=== PATIENT | female | born 1940 | race Caucasian/White ===

== ENCOUNTER 2018-03-10 15:40 | Emergency (ER) | payer MEDICARE, BC ==
[~2018-03-10] VITALS: Ht 170.2 cm; Wt 57.6 kg
--- NOTE | 2018-03-10 15:40 | NUR ---
Received patient - AOX4, VELÁZQUEZ, respiration:easy, ETOH breath noted, pt denies drinking alcohol prior to arrival to ER, c/o left arm and left rib pains, skin warm and dry, denies nausea or chest pains
[2018-03-10] MEDS ORDERED: CHOL100034 PO (15:59)
[2018-03-10] MEDS ORDERED: [UNRECOGNIZED DRUG - OTHER] PO (15:59)
[2018-03-10] MEDS ORDERED: THIA100T13 PO (15:59)
[2018-03-10] MEDS ORDERED: COD1CAPS6 PO (15:59)
[2018-03-10] MEDS ORDERED: ALPHA LIPOIC ACID PO (15:59)
[2018-03-10] MEDS ORDERED: PYRI100T6 PO (15:59)
[2018-03-10] MEDS ORDERED: FOLI1TAB16 PO (15:59)
[2018-03-10] MEDS ORDERED: MAGNESIUM PO (15:59)
[2018-03-10] MEDS ORDERED: SPIR25TA6 PO (15:59)
[2018-03-10] MEDS ORDERED: HIGH POTENCY IRON PO (15:59)
[2018-03-10] MEDS ORDERED: FURO20TA4 PO (15:59)
[2018-03-10 16:16] LABS: BASOPHILS % (AUTO) 0.4 % (0.0-2.0); EOSINOPHILS # (AUTO) 0.1 K/uL (0.0-0.7); EOSINOPHILS % (AUTO) 1.4 % (0.0-7.0); HEMATOCRIT 40.3 % (31.2-41.9); HEMOGLOBIN 14.1 g/dL (10.9-14.3); LYMPHOCYTES # (AUTO) 0.5 K/uL (20.0-40.0); LYMPHOCYTES % (AUTO) 12.8 % (20.5-51.5); MEAN CORPUSCULAR HEMOGLOBIN 35.3 uug (24.7-32.8); MEAN CORPUSCULAR HGB CONC 35 g/dL (32.3-35.6); MEAN CORPUSCULAR VOLUME 101.2 fL (75.5-95.3); MONOCYTES # (AUTO) 0.5 K/uL (2.0-10.0); NEUTROPHILS # (AUTO) 3.1 K/uL (1.8-8.9); NEUTROPHILS % (AUTO) 74.4 % (38.5-71.5); PLATELET COUNT (AUTO) 59 K/uL (179-408); RED BLOOD CELL COUNT(AUTO) 3.98 MIL/uL (3.63-4.92); WHITE BLOOD COUNT (AUTO) 4.2 K/uL (3.8-11.8)
[2018-03-10 16:20] LABS: CARBON DIOXIDE 25 mmol/L (21-32); CHLORIDE 99 mmol/L (98-107); CREATININE 0.8 mg/dL (0.6-1.3); GLUCOSE 104 mg/dL (74-106); POTASSIUM 3.6 mmol/L (3.5-5.1); UREA NITROGEN, BLOOD 14 mg/dL (7-18)
[2018-03-10 16:26] LABS: ALANINE AMINOTRANSFERASE 37 U/L (14-59); ALKALINE PHOSPHATASE 146 U/L (50-136); ASPARTATE AMINOTRANSFERASE 83 U/L (15-37); BILIRUBIN,DIRECT 2.1 mg/dL (0.0-0.2); BILIRUBIN,TOTAL 3.8 mg/dL (0.2-1.0)
--- NOTE | 2018-03-10 16:34 | NUR ---
Patient is back from radiology dept in smae condition, pending results and disposition. Addendum: 03/10/18 at 1720 by DESHAUN Patient came from radiology dept in same condition, pending results and disposition
[2018-03-10 16:44] LABS: BAND % (MANUAL) 3 % (0-10); LYMPHOCYTES % (MANUAL) 12 % (20-40); MONOCYTES % (MANUAL) 9 % (2-10); NEUTROPHILS % (MANUAL) 76 % (42-75)
--- NOTE | 2018-03-10 17:19 | NUR ---
Patient is resting comfortably in bed with eyes closed, for soberiety@this time
--- NOTE | 2018-03-10 17:55 | NUR ---
Patient ambulated to bathroom with slow steady unassisted gait. Dinner tray ordered. Dietary notified. Patient said that she can go home via MD zulema aware.
[2018-03-10] MEDS ORDERED: ACETAMINOPHEN 325 MG TABLET PO ONE (18:00)
[2018-03-10] MEDS ORDERED: ACETAMINOPHEN 325 MG TABLET ONE (18:02)
--- NOTE | 2018-03-10 18:40 | NUR ---
Patient is eating dinner tray with good appetite.
--- NOTE | 2018-03-10 19:00 | NUR ---
Patient discharged to home in stable conditon and slow steady gait. Written and verbal after care instructions given to patient. Patient verbalizes understanding of instructions. Taxi was called for the patient per patient's request.
== END 2018-03-10 19:01 | disposition home or self-care (01) ==
LOC: ER 15:43
DX: S51.012A Laceration without foreign body of left elbow, initial encounter (principal); S20.212A Contusion of left front wall of thorax, initial encounter; S16.1XXA Strain of muscle, fascia and tendon at neck level, initial encounter; S09.90XA Unspecified injury of head, initial encounter; F10.129 Alcohol abuse with intoxication, unspecified; W01.198A Fall on same level from slipping, tripping and stumbling with subsequent striking against other object, initial encounter; Y93.89 Activity, other specified; Y92.89 Other specified places as the place of occurrence of the external cause; Y99.8 Other external cause status
CPT/HCPCS: 36415; 70450; 71250; 72125; 73060; 80048; 80076; 85025; 85730; 93005; 99285; A4663; G0480

== ENCOUNTER 2020-10-11 15:07 | Inpatient (IN) | payer MEDICARE, BC ==
[~2020-10-11] VITALS: Ht 170.2 cm; Wt 61.3 kg
[~2020-10-11 15:07] MED LIST: ALPHA LIPOIC ACID PO; CHOL100034 PO; COD1CAPS15 PO; FOLI1TAB94 PO; FURO20TA4 PO; HIGH POTENCY IRON PO; MAGNESIUM PO; PYRI100T6 PO; SPIR25TA6 PO; THIA100T13 PO; [UNRECOGNIZED DRUG - OTHER] PO
[2020-10-11] MEDS ORDERED: ONDANSETRON 4 MG/2 ML VIAL IV ONE (16:15)
[2020-10-11] MEDS ORDERED: IV NORMAL SALINE 1000 ML BAG IV ONE (16:15)
[2020-10-11] MEDS ORDERED: MORPHINE SULFATE 2 MG/1 ML DISP.SYRIN IV ONE (16:15)
[2020-10-11] MEDS ORDERED: ONDANSETRON 4 MG/2 ML VIAL ONE (16:27)
[2020-10-11] MEDS ORDERED: MORPHINE SULFATE 4 MG/1 ML DISP.SYRIN ONE (16:27)
[2020-10-11 16:59] LABS: BASOPHILS % (AUTO) 0.4 % (0.0-2.0); EOSINOPHILS % (AUTO) 0.5 % (0.0-7.0); HEMATOCRIT 36.8 % (31.2-41.9); HEMOGLOBIN 12.4 g/dL (10.9-14.3); LYMPHOCYTES # (AUTO) 0.3 K/uL (20.0-40.0); MEAN CORPUSCULAR HGB CONC 34 g/dL (32.3-35.6); MEAN CORPUSCULAR VOLUME 100.4 fL (75.5-95.3); MONOCYTES # (AUTO) 0.4 K/uL (2.0-10.0); MONOCYTES % (AUTO) 10.7 % (0.0-11.0); NEUTROPHILS # (AUTO) 2.9 K/uL (1.8-8.9); NEUTROPHILS % (AUTO) 79.4 % (38.5-71.5); RED BLOOD CELL COUNT(AUTO) 3.66 MIL/uL (3.63-4.92); WHITE BLOOD COUNT (AUTO) 3.7 K/uL (3.8-11.8)
[2020-10-11] MEDS ORDERED: PRED1TAB PO (17:00)
--- NOTE | 2020-10-11 17:00 | NUR ---
Dr Recinos spoke to Dr Patiño for admit.
--- NOTE | 2020-10-11 17:00 | NUR ---
Pt is unable to recall all of her home medications at this time. Pt states she has a list at home and she will try to get someone to bring it in. Current list updated accordingly with information provided.
[2020-10-11 17:07] LABS: CREATININE 0.8 mg/dL (0.6-1.3); POTASSIUM 3.6 mmol/L (3.5-5.1)
[2020-10-11 17:17] LABS: PLATELET COUNT (AUTO) 42 K/uL (179-408)
[2020-10-11 17:23] LABS: BILIRUBIN,DIRECT 0.6 mg/dL (0.0-0.2); BILIRUBIN,TOTAL 1.9 mg/dL (0.2-1.0); TOTAL PROTEIN, SERUM 6.8 g/dL (6.4-8.2)
--- NOTE | 2020-10-11 17:25 | NUR ---
Addy distance learning technician at [place] notified of MRI order.
--- NOTE | 2020-10-11 17:39 | NUR ---
TEXTED DR. JEFFREY FOR MRI APPROVAL.
[2020-10-11 17:44] LABS: BAND % (MANUAL) 2 % (0-10); NEUTROPHILS % (MANUAL) 74 % (42-75)
[2020-10-11 17:45] LABS: BASOPHILS % (MANUAL) 0 % (0-2); EOSINOPHILS % (MANUAL) 1 % (0-8); LYMPHOCYTES % (MANUAL) 10 % (20-40); MONOCYTES % (MANUAL) 13 % (2-10)
--- NOTE | 2020-10-11 18:20 | NUR ---
Addy from [facility] called and had the approval from Dr Manriquez. Place a call to Multiple ambulance companies, earliest availibily is w/ [facility] at [phone].
--- NOTE | 2020-10-11 18:30 | NUR ---
Pt signed MRI check list and IV contrasted MRI cosent, placed in the chart.
--- NOTE | 2020-10-11 19:44 | NUR ---
Patient will be going to 306/Telemetry.
--- NOTE | 2020-10-11 20:26 | NUR ---
Gave report to dany White
--- NOTE | 2020-10-11 21:15 | NUR ---
Admitted a 80 years old female with Dx of Thoracic Fracture. Patient AAOx4. In no acute distress. Denies any SOB. Complained of upper back pain, shoulder pain and feet. Will provide pain medication once admitting orders are in. IV site on left FA intact and patent. Assisted to reposition for comfort. NSR on tele at 90/min. Routine admission care done. Plan of care initiated. Safety measure initiated and call rodrigues within reached. [place] [facility] [place] Awaiting for ambulance to knot picker cloth.
[2020-10-11 21:20] VITALS: BP 129/63
--- NOTE | 2020-10-11 21:23 | NUR ---
Pt. admitted to tele , under care of Dr. Patiño Dx:fracture Belongs List completed
--- NOTE | 2020-10-11 22:30 | NUR ---
Telephone call to Dr. Patiño and requesting admitting order. Obtain telephone order for Morphine 4mg IV every 4 hours PRN. Order read back, verified and will carry out.
[2020-10-11] MEDS: MORPHINE SULFATE 4 MG/1 ML DISP.SYRIN IV PRN (22:36)
--- NOTE | 2020-10-11 22:40 | NUR ---
Patient picked up by ambulance via gurney accompanied by 2 paramedics to [facility] for MRI.
[2020-10-11] MEDS ORDERED: ACETAMINOPHEN 325 MG TABLET PO PRN (23:00)
[2020-10-11] MEDS ORDERED: MAGNESIUM HYDROXIDE 30 ML LIQUID UDC PO PRN (23:00)
[2020-10-11] MEDS ORDERED: Z GUARD REMEDY PASTE 57 GM TUBE TOP PRN (23:00)
[2020-10-11] MEDS ORDERED: ZOLPIDEM 5 MG TABLET PO PRN (23:00)
[2020-10-11] MEDS ORDERED: ONDANSETRON 4 MG/2 ML VIAL IV PRN (23:00)
--- NOTE | 2020-10-12 00:32 | NUR ---
Patient back from MRI at [facility], dropped off by Ambulance via gurney accompanied by 2 paramedics.
[2020-10-12 00:40] VITALS: BP 103/51
[2020-10-12 04:10] VITALS: BP 112/43
[2020-10-12] MEDS: MORPHINE SULFATE 4 MG/1 ML DISP.SYRIN IV PRN ×4 (05:15→22:03)
[2020-10-12] MEDS: PANTOPRAZOLE SODIUM 40 MG TABLET.DR PO SCH (06:14)
--- NOTE | 2020-10-12 06:14 | NUR ---
Patient remains AAOx4. In no acute distress. Morphine 4mg via IV every 4 hours PRN given for complain of pain and effective. NPO status. IV site on left FA remains intact and patent. NSR on tele at 82/min. Jefferson catheter intact and draining via gravity. Needs attended to and met. Safety measure maintained and call brainne islas reached.
[2020-10-12 06:39] LABS: BASOPHILS % (AUTO) 0.4 % (0.0-2.0); EOSINOPHILS # (AUTO) 0.1 K/uL (0.0-0.7); EOSINOPHILS % (AUTO) 2.4 % (0.0-7.0); HEMATOCRIT 34.4 % (31.2-41.9); HEMOGLOBIN 11.7 g/dL (10.9-14.3); LYMPHOCYTES # (AUTO) 0.7 K/uL (20.0-40.0); LYMPHOCYTES % (AUTO) 20.3 % (20.5-51.5); MEAN CORPUSCULAR HEMOGLOBIN 34.2 uug (24.7-32.8); MEAN CORPUSCULAR HGB CONC 34 g/dL (32.3-35.6); MEAN CORPUSCULAR VOLUME 100.8 fL (75.5-95.3); MONOCYTES # (AUTO) 0.4 K/uL (2.0-10.0); MONOCYTES % (AUTO) 12.2 % (0.0-11.0); NEUTROPHILS # (AUTO) 2.2 K/uL (1.8-8.9); NEUTROPHILS % (AUTO) 64.7 % (38.5-71.5); RED BLOOD CELL COUNT(AUTO) 3.42 MIL/uL (3.63-4.92); WHITE BLOOD COUNT (AUTO) 3.3 K/uL (3.8-11.8)
[2020-10-12 06:53] LABS: THYROID STIMULATING HORMONE 0.643 mIU/mL (0.358-3.740)
[2020-10-12 06:58] LABS: BILIRUBIN,DIRECT 0.7 mg/dL (0.0-0.2); BILIRUBIN,TOTAL 2.2 mg/dL (0.2-1.0); CREATININE 0.7 mg/dL (0.6-1.3); MAGNESIUM 1.5 mg/dL (1.8-2.4); PHOSPHOROUS 3.4 mg/dL (2.5-4.9); POTASSIUM 3.7 mmol/L (3.5-5.1); TOTAL PROTEIN, SERUM 6.1 g/dL (6.4-8.2)
[2020-10-12 07:05] LABS: PLATELET COUNT (AUTO) 37 K/uL (179-408)
--- NOTE | 2020-10-12 07:05 | NUR ---
Telephone call from joni/Mariia and reported critical value for platelet = 37. Informed day shift nurse Inder and will relay to .
--- NOTE | 2020-10-12 07:49 | NUR ---
Alert, oriented x 4. Bedrest. NPO maintained and reinstructed. Jefferson catheter in place. Noted bleeding on IV site and RUE wound, dressing reinforced.
[2020-10-12] MEDS: MAGNESIUM SULFATE/D5W 100 ML IV SCH ×2 (10:36→11:43)
--- NOTE | 2020-10-12 11:00 | NUR ---
NO SURGICAL INTERVENTION AT THIS TIME. DIET ORDERED. PLATELET TRANSFUSION CANCELLED.
[2020-10-12] MEDS ORDERED: GADOTERATE MEGLUMINE 10 MMOL/20 ML VIAL IV ONE (11:41)
--- NOTE | 2020-10-12 11:47 | NUR ---
WOUND CARE CONSULT: PT PRESENTS WITH DISCOLORATION TO BILATERAL ARMS WITH OPEN SKIN TEAR AND ABRASIONS TO RT UPPER ARM, PRESENT ON ADMISSION. RECOMMENDATIONS MADE FOR SKIN PROTECTION AND WOUND CARE. DISCUSSED WITH NURSING STAFF. CYSTS NOTED TO HEELS WITHOUT OPEN SKIN. PT STATES THIS IS CHRONIC. NO ERYTHEMA OR TENDERNESS NOTED TO HEELS. MD IN AGREEMENT WITH PLAN OF CARE. Addendum: 10/12/20 at 1148 by SHAZIA MON RN Amended: Links added.
[2020-10-12 11:49] VITALS: BP 130/59
[2020-10-12] MEDS: SPIRONOLACTONE 25 MG TABLET PO SCH (12:42)
[2020-10-12] MEDS: FUROSEMIDE 20 MG TABLET PO SCH (12:42)
[2020-10-12] MEDS: predniSONE 5 MG TABLET PO SCH (12:42)
[2020-10-12] MEDS: FOLIC ACID 1 MG TABLET PO SCH (12:42)
[2020-10-12] MEDS: THIAMINE HCL 100 MG TABLET PO SCH (12:43)
[2020-10-12] MEDS: PYRIDOXINE HCL 100 MG TABLET PO SCH ×2 (13:00→13:10)
[2020-10-12 13:33] LABS: BAND % (MANUAL) 1 % (0-10); EOSINOPHILS % (MANUAL) 3 % (0-8); LYMPHOCYTES % (MANUAL) 11 % (20-40); MONOCYTES % (MANUAL) 13 % (2-10); NEUTROPHILS % (MANUAL) 72 % (42-75)
--- NOTE | 2020-10-12 15:19 | NUR ---
[facility]O BRACE ORDERED WAITING FOR DELIVERY, PT EVALUATION PENDING BRACE AVAILABILITY.
[2020-10-12 16:41] LABS: IRON, SERUM 170 ug/dL (50-175)
[2020-10-12 17:09] LABS: FERRITIN 217 ng/mL (8-252)
--- NOTE | 2020-10-12 17:50 | NUR ---
PITA ROWAN ARRIVED AND AT BEDSIDE, PT GONE FOR THE DAY. PATIENT IN BED AWAKE, PAIN MEDICATION GIVEN. IV PATENT AND FLUSHED, MARTIN DRAINING WELL. WILL REPORT TO ONCOMING SHIFT.
[2020-10-12 17:55] LABS: *RHEUMATOID FACTOR SCREEN NEGATIVE (NEGATIVE)
[2020-10-12] MEDS: HYDROCODONE/APAP 5-325MG TABLET PO PRN (19:53)
--- NOTE | 2020-10-12 20:00 | NUR ---
Received patient lying in bed. AAOx4. In no acute distress. Denies any SOB. On o2 at 2LPM via NC in place. O2 sat at 92%. Still complaining of lower back and giovany. shoulder pain. Will give [place] per order. Iv site on left FA intact and patent. NSR on tele at 80/min. Jefferson catheter intact and draining via gravity. Safety measure initiated and call rodrigues within reached.
[2020-10-12 20:03] VITALS: BP 127/87
[2020-10-13 00:03] VITALS: BP 130/83
[2020-10-13 04:06] VITALS: BP 116/49
[2020-10-13] MEDS: PANTOPRAZOLE SODIUM 40 MG TABLET.DR PO SCH ×2 (06:00→08:56)
--- NOTE | 2020-10-13 06:05 | NUR ---
AAOx4. In no acute distress. Morphine 4mg via IV every 4 hours PRN given for complain of pain and effective. IV site on left FA intact and patent. NSR on tele at 72/min. O2 at 2LPM via NC in place. O2 sat at 95%. Jefferson catheter intact and draining via gravity. Needs attended to and met. Safety measure maintained and call bel within reached.
[2020-10-13 06:21] LABS: BASOPHILS % (AUTO) 0.6 % (0.0-2.0); EOSINOPHILS # (AUTO) 0.1 K/uL (0.0-0.7); EOSINOPHILS % (AUTO) 2.6 % (0.0-7.0); HEMATOCRIT 36.5 % (31.2-41.9); HEMOGLOBIN 12.4 g/dL (10.9-14.3); LYMPHOCYTES # (AUTO) 0.7 K/uL (20.0-40.0); LYMPHOCYTES % (AUTO) 16.8 % (20.5-51.5); MEAN CORPUSCULAR HEMOGLOBIN 34.2 uug (24.7-32.8); MEAN CORPUSCULAR HGB CONC 34 g/dL (32.3-35.6); MEAN CORPUSCULAR VOLUME 100.7 fL (75.5-95.3); MONOCYTES # (AUTO) 0.5 K/uL (2.0-10.0); MONOCYTES % (AUTO) 12.2 % (0.0-11.0); NEUTROPHILS # (AUTO) 2.7 K/uL (1.8-8.9); NEUTROPHILS % (AUTO) 67.8 % (38.5-71.5); RED BLOOD CELL COUNT(AUTO) 3.63 MIL/uL (3.63-4.92)
[2020-10-13 06:25] LABS: CREATININE 0.7 mg/dL (0.6-1.3); POTASSIUM 3.7 mmol/L (3.5-5.1)
[2020-10-13 06:29] LABS: PLATELET COUNT (AUTO) 41 K/uL (179-408)
[2020-10-13 06:33] LABS: MAGNESIUM 1.6 mg/dL (1.8-2.4); PHOSPHOROUS 3.2 mg/dL (2.5-4.9)
--- NOTE | 2020-10-13 06:50 | NUR ---
Telephone call from lab/Faustina and reported platelet level of 41. Endorsed to day shift nurse.
--- NOTE | 2020-10-13 07:30 | NUR ---
received patient in bed awake and alert, will continue to monitor.
[2020-10-13] MEDS: FUROSEMIDE 20 MG TABLET PO SCH (08:56)
[2020-10-13] MEDS: FOLIC ACID 1 MG TABLET PO SCH (08:56)
[2020-10-13] MEDS: predniSONE 5 MG TABLET PO SCH (08:56)
[2020-10-13] MEDS: THIAMINE HCL 100 MG TABLET PO SCH (08:59)
[2020-10-13] MEDS: SPIRONOLACTONE 25 MG TABLET PO SCH (08:59)
[2020-10-13] MEDS: PYRIDOXINE HCL 100 MG TABLET PO SCH (09:00)
[2020-10-13] MEDS ORDERED: FUROSEMIDE 20 MG TABLET PO SCH (09:00)
[2020-10-13] MEDS: HYDROCODONE/APAP 5-325MG TABLET PO PRN (09:03)
[2020-10-13] MEDS: MAGNESIUM SULFATE/D5W 100 ML IV SCH ×2 (10:35→11:23)
[2020-10-13 11:28] LABS: BASOPHILS % (MANUAL) 0 % (0-2); EOSINOPHILS % (MANUAL) 0 % (0-8); LYMPHOCYTES % (MANUAL) 18 % (20-40); MONOCYTES % (MANUAL) 8 % (2-10); NEUTROPHILS % (MANUAL) 74 % (42-75)
[2020-10-13 12:00] VITALS: BP 129/64
[2020-10-13 15:26] VITALS: BP 124/56
[2020-10-13] MEDS: MORPHINE SULFATE 4 MG/1 ML DISP.SYRIN IV PRN (17:37)
[2020-10-13] MEDS ORDERED: HYDR-3980 PO (18:43)
[2020-10-13] MEDS ORDERED: HYDROCODONE/APAP 10-325 MG TABLET PO PRN (18:45)
--- NOTE | 2020-10-13 18:59 | NUR ---
patient awake in bed, IV patent and flushed, soni catheter draining well. no complains of discomfort a this time. transferred to ARU. will report to oncoming nurse.
[2020-10-16 05:22] LABS: *IMMUNOGLOBULIN G, SERUM 1084; IMMUNOGLOBULIN A, SERUM 477; IMMUNOGLOBULIN M, SERUM 119
[2020-10-18 14:01] LABS: M-SPIKE Not Observed
[2020-10-18 14:07] LABS: ALPHA-1-GLOBULIN 0.2; ALPHA-2-GLOBULIN 0.4; GAMMA GLOBULIN 1.1
[2020-10-18 14:08] LABS: A/G RATIO 1.1; ANTI-DNA(DS) AB, QN 43 HIGH; GLOBULIN, TOTAL 2.8
[2020-10-18 14:09] LABS: *ANTI-SCLERODERMA-70 AB <0.2; *SJOGREN'S ANTI-SS-A <0.2; *SJOGREN'S ANTI-SS-B <0.2; *SMITH ANTIBODIES <0.2
== END 2020-10-13 19:29 | DRG 552 ==
LOC: ER 15:08 → TELE3 20:45
PROVIDERS: ADMIT Student in an Organized Health Care Education/Training Program; ATTEND Student in an Organized Health Care Education/Training Program
DX: S22.081A Stable burst fracture of T11-T12 vertebra, initial encounter for closed fracture (principal); D68.9 Coagulation defect, unspecified; E44.0 Moderate protein-calorie malnutrition; W18.30XA Fall on same level, unspecified, initial encounter; D69.59 Other secondary thrombocytopenia; E83.42 Hypomagnesemia; K74.60 Unspecified cirrhosis of liver; R16.1 Splenomegaly, not elsewhere classified; D70.9 Neutropenia, unspecified; F10.21 Alcohol dependence, in remission; Z68.21 Body mass index [BMI] 21.0-21.9, adult; M48.04 Spinal stenosis, thoracic region; W19.XXXA Unspecified fall, initial encounter; Y93.9 Activity, unspecified; Y92.009 Unspecified place in unspecified non-institutional (private) residence as the place of occurrence of the external cause; Z20.822 Contact with and (suspected) exposure to COVID-19; K57.90 Diverticulosis of intestine, part unspecified, without perforation or abscess without bleeding
CPT/HCPCS: 36415; 51702; 70030-TC; 71045; 72131; 72158; 72192; 76705; 82784; 83550; 83690; 83735; 84100; 84155; 84165; 84443; 85025; 85610; 85730; 86038; 86334; 86430; 86706; 86803; 86850; 86900; 86901; 87340; 93005; A4217; A4663; A9575; G0378; J2270; J2405; J3475; J7512; U0003

== ENCOUNTER 2020-10-13 19:30 | Inpatient (IN) | payer MEDICARE, BC ==
[~2020-10-13] VITALS: Ht 171.4 cm; Wt 62.1 kg
[~2020-10-13 19:30] MED LIST changes: +HYDR-3980 PO; +PRED1TAB PO
[2020-10-13 20:00] VITALS: BP 113/51
[2020-10-13] MEDS ORDERED: Z GUARD REMEDY PASTE 57 GM TUBE TOP PRN (20:15)
--- NOTE | 2020-10-13 21:15 | NUR ---
Admitted patient from MS via bed. Awake, alert and oriented x 4. Able to make needs known. Routine admission care done. Plan of care initiated.
[2020-10-13] MEDS: OXYCODONE/APAP 5-325 MG TABLET PO PRN (23:23)
--- NOTE | 2020-10-13 23:25 | NUR ---
Medicated for left shoulder pain in scale of 8/10. Will monitor.
[2020-10-14 04:56] VITALS: BP 126/55
--- NOTE | 2020-10-14 06:29 | NUR ---
Shift End Report: VSS, Slept in between care. All needs attended and met. No further complaint of pain presented. No s/s of hypo/hypertension. All needs attended and met. No significant event reported all night. Continue current rehab plan of care.
[2020-10-14] MEDS: THIAMINE HCL 100 MG TABLET PO SCH (08:16)
[2020-10-14] MEDS: predniSONE 5 MG TABLET PO SCH (08:17)
[2020-10-14] MEDS: FUROSEMIDE 20 MG TABLET PO SCH (08:17)
[2020-10-14] MEDS: HYDROCODONE/APAP 10-325 MG TABLET PO SCH ×4 (08:17→20:19)
[2020-10-14] MEDS: FOLIC ACID 1 MG TABLET PO SCH (08:17)
[2020-10-14] MEDS: SPIRONOLACTONE 25 MG TABLET PO SCH (08:17)
[2020-10-14 15:36] VITALS: BP 140/55
--- NOTE | 2020-10-14 19:20 | NUR ---
In bed, awake and alert, Denies any pain/discomforts at this time. Safety measures and fall prevention maintained. Continue care as planned.
[2020-10-14 20:35] VITALS: BP 123/60
--- NOTE | 2020-10-15 | NUR ---
Bladder scan performed, shows 78 ml this time.
[2020-10-15 04:36] VITALS: BP 107/53
--- NOTE | 2020-10-15 06:00 | NUR ---
Bladder scan performed, 67ml noted. Will endorse.
--- NOTE | 2020-10-15 06:02 | NUR ---
Shift End Report: VSS. Slept well. No complaint presented. All needs attended and met. No significant event reported all night. Continue current rehab plan of care.
[2020-10-15 06:38] LABS: BASOPHILS % (AUTO) 0.6 % (0.0-2.0); EOSINOPHILS # (AUTO) 0.1 K/uL (0.0-0.7); EOSINOPHILS % (AUTO) 3.2 % (0.0-7.0); HEMATOCRIT 40.4 % (31.2-41.9); HEMOGLOBIN 13.6 g/dL (10.9-14.3); LYMPHOCYTES # (AUTO) 0.9 K/uL (20.0-40.0); LYMPHOCYTES % (AUTO) 22.9 % (20.5-51.5); MEAN CORPUSCULAR HEMOGLOBIN 33.9 uug (24.7-32.8); MEAN CORPUSCULAR HGB CONC 34 g/dL (32.3-35.6); MEAN CORPUSCULAR VOLUME 100.9 fL (75.5-95.3); MONOCYTES # (AUTO) 0.5 K/uL (2.0-10.0); NEUTROPHILS # (AUTO) 2.4 K/uL (1.8-8.9); NEUTROPHILS % (AUTO) 61.3 % (38.5-71.5); PLATELET COUNT (AUTO) 63 K/uL (179-408); RED BLOOD CELL COUNT(AUTO) 4.01 MIL/uL (3.63-4.92); WHITE BLOOD COUNT (AUTO) 3.9 K/uL (3.8-11.8)
[2020-10-15] MEDS: PANTOPRAZOLE SODIUM 40 MG TABLET.DR PO SCH (06:52)
[2020-10-15 06:57] LABS: EOSINOPHILS % (MANUAL) 2 % (0-8); LYMPHOCYTES % (MANUAL) 19 % (20-40); MONOCYTES % (MANUAL) 11 % (2-10); NEUTROPHILS % (MANUAL) 68 % (42-75)
[2020-10-15 07:01] LABS: BILIRUBIN,TOTAL 1.6 mg/dL (0.2-1.0); CREATININE 0.7 mg/dL (0.6-1.3); POTASSIUM 3.8 mmol/L (3.5-5.1)
[2020-10-15 08:00] VITALS: BP 123/47
[2020-10-15] MEDS: THIAMINE HCL 100 MG TABLET PO SCH (08:29)
[2020-10-15] MEDS: HYDROCODONE/APAP 10-325 MG TABLET PO SCH ×3 (08:30→17:14)
[2020-10-15] MEDS: SPIRONOLACTONE 25 MG TABLET PO SCH (08:30)
[2020-10-15] MEDS: FUROSEMIDE 20 MG TABLET PO SCH (08:30)
[2020-10-15] MEDS: FOLIC ACID 1 MG TABLET PO SCH (08:30)
[2020-10-15] MEDS: predniSONE 5 MG TABLET PO SCH (08:31)
--- NOTE | 2020-10-15 12:08 | NUR ---
WOUND CARE CONSULT: PT PRESENTS WITH SKIN TEARS, ABRASIONS AND DISCOLORATION TO UPPER EXTREMITIES, PRESENT ON ADMISSION. RECOMMENDATIONS MADE FOR SKIN PROTECTION AND WOUND CARE. DISCUSSED WITH NURSING STAFF. IN AGREEMENT WITH PLAN OF CARE. Addendum: 10/15/20 at 1209 by SHAZIA MON RN Amended: Links added.
[2020-10-15 15:43] VITALS: BP 117/56
--- NOTE | 2020-10-15 17:00 | NUR ---
Pt stated had recent cataract sx and would like to use eye drops from home. Pt's friend Chloe brought in pt's home medication. Spoke with Maria Del Rosario from pt's eye doctor, Dr. Carrero's, office to clarify order. Dr. Patiño made aware, in agreement, new orders in place. Pharmacy aware.
[2020-10-15] MEDS ORDERED: EYE ITCH RELIEF EACHEYE SCH (17:45)
[2020-10-15] MEDS: PROLENSA EYE EACHEYE SCH (18:45)
--- NOTE | 2020-10-15 18:58 | NUR ---
End of shift note: Pt in bed, able to verbalize needs, all needs met at this time. Pt in no acute distress, VSS. Due medications given per order, no a/r noted. Pt stated she takes Lactulose at home, Dr. Patiño made aware, new order in place. Brace on when pt OOB. Pt OOB safely to BSC, voiding freely, no BM noted today. Bladder scans done q6hr, last bladder scan 35mL. Wound care provided per order with wound care nurse at bedside, reinforced PRN. Safety measures and fall precautions maintained. Call light and belongings within reach. Will endorse care to soap worker nurse.
--- NOTE | 2020-10-15 19:10 | NUR ---
In bed, watching TV at this time. No complaint present. Very pleasant and conversant. No s/s of respiratory distress. Safety measures and fall prevention maintained. Continue care as planned.
[2020-10-15 20:15] VITALS: BP 118/63
[2020-10-15 21:15] VITALS: BP 118/63
[2020-10-15] MEDS: HYDROCODONE/APAP 10-325 MG TABLET PO PRN (22:37)
--- NOTE | 2020-10-16 01:50 | NUR ---
Patient complaining of odor in her urine and some discomforts during urination. Will notify
[2020-10-16] MEDS: OXYCODONE/APAP 5-325 MG TABLET PO PRN (02:00)
--- NOTE | 2020-10-16 03:13 | NUR ---
Urine for UA collected and sent to lab.
[2020-10-16 03:44] LABS: *BILIRUBIN,URIN NEGATIVE (NEGATIVE); *COLOR,URINE AMBER (YELLOW); *KETONES,URINE NEGATIVE (NEGATIVE); *UROBILINOGEN,URINE >=8.0 E.U./dl (NORMAL); LEUKOCYTE ESTERASE ,URINE 2+ (NEGATIVE); NITRITE, URINE POSITIVE (NEGATIVE); PH,URINE 8.5 (5.0-8.0); UGLUCOSE NEGATIVE (NEGATIVE)
[2020-10-16 04:02] LABS: *BLOOD, URINE TRACE (NEGATIVE); *CLARITY,URINE HAZY (CLEAR)
[2020-10-16 04:03] LABS: BACTERIA,URINE MODERATE /HPF (NONE SEEN); SQUAMOUS EPITHELIAL CELL,UR FEW /HPF (NONE SEEN); TRIPLE PHOSPHATE CRYSTAL,UR MODERATE /HPF (NONE SEEN)
[2020-10-16 04:47] VITALS: BP 126/58
[2020-10-16] MEDS: PANTOPRAZOLE SODIUM 40 MG TABLET.DR PO SCH (06:16)
--- NOTE | 2020-10-16 06:39 | NUR ---
Shift End Report: VSS. Slept good. Medicated twice for complaint of pain. No further complaint presented. All needs attended and met. No significant event reported all night. Continue current rehab plan of care.
[2020-10-16 07:37] VITALS: BP 147/64
[2020-10-16] MEDS: THIAMINE HCL 100 MG TABLET PO SCH (08:28)
[2020-10-16] MEDS: FUROSEMIDE 20 MG TABLET PO SCH (08:28)
[2020-10-16] MEDS: SPIRONOLACTONE 25 MG TABLET PO SCH (08:28)
[2020-10-16] MEDS: predniSONE 5 MG TABLET PO SCH (08:28)
[2020-10-16] MEDS: FOLIC ACID 1 MG TABLET PO SCH (08:28)
[2020-10-16] MEDS: PROLENSA EYE EACHEYE SCH (08:28)
[2020-10-16] MEDS: HYDROCODONE/APAP 10-325 MG TABLET PO PRN ×3 (08:29→22:47)
[2020-10-16] MEDS: EYE ITCH RELIEF EACHEYE PRN (08:30)
[2020-10-16] MEDS: LACTULOSE 20 G/30 ML LIQUID UDC PO PRN (12:22)
--- NOTE | 2020-10-16 14:38 | NUR ---
INDIVIDUALIZED PLAN OF CARE
[2020-10-16 15:39] VITALS: BP 120/57
[2020-10-16] MEDS: ENSURE ENLIVE (VAN) 240 ML LIQUID PO SCH (17:38)
--- NOTE | 2020-10-16 18:08 | NUR ---
End of shift note: Pt in bed, no acute distress, all needs met at this time. VSS. Pt denies pain at this time. Due medications given per order, no a/r noted. Pt requested PRN Lactulose today, administered per order, per pt was effective: "1 extra large BM". Pt OOB to BSC, voiding spontaneously, support brace in place when OOB. UA results back, Dr. Araiza made aware. Wound care rendered per order. Safety measures, fall precautions, aspiration precautions in place. Call light and belongings within reach. Will endorse care to overnight cashier nurse.
[2020-10-16 19:58] VITALS: BP 111/45
--- NOTE | 2020-10-17 04:28 | NUR ---
Resting in bed at beginning of shift. AAOx4 OOB to bedside commode. Voiding well. Pain meds given as needed. Relief noted.Right arm dressing clean dry and intact. Will monitor patient. Needs attended. Kept comfortable.
[2020-10-17 04:56] VITALS: BP 115/53
[2020-10-17] MEDS: PANTOPRAZOLE SODIUM 40 MG TABLET.DR PO SCH (06:33)
[2020-10-17 06:37] LABS: BASOPHILS % (AUTO) 0.6 % (0.0-2.0); EOSINOPHILS # (AUTO) 0.1 K/uL (0.0-0.7); EOSINOPHILS % (AUTO) 3.7 % (0.0-7.0); HEMATOCRIT 39.8 % (31.2-41.9); HEMOGLOBIN 13.2 g/dL (10.9-14.3); LYMPHOCYTES # (AUTO) 0.7 K/uL (20.0-40.0); LYMPHOCYTES % (AUTO) 19.7 % (20.5-51.5); MEAN CORPUSCULAR HEMOGLOBIN 33.4 uug (24.7-32.8); MEAN CORPUSCULAR HGB CONC 33 g/dL (32.3-35.6); MONOCYTES # (AUTO) 0.4 K/uL (2.0-10.0); MONOCYTES % (AUTO) 12.1 % (0.0-11.0); NEUTROPHILS # (AUTO) 2.4 K/uL (1.8-8.9); NEUTROPHILS % (AUTO) 63.9 % (38.5-71.5); PLATELET COUNT (AUTO) 58 K/uL (179-408); RED BLOOD CELL COUNT(AUTO) 3.94 MIL/uL (3.63-4.92); WHITE BLOOD COUNT (AUTO) 3.7 K/uL (3.8-11.8)
--- NOTE | 2020-10-17 06:45 | NUR ---
End of shift notes: Quiet night. Needs attended. VSS. Denies any pain nor any discomfort. Slept well throughout the night.Voiding well.
[2020-10-17 08:00] VITALS: BP 116/44
[2020-10-17] MEDS: FUROSEMIDE 20 MG TABLET PO SCH (08:46)
[2020-10-17] MEDS: THIAMINE HCL 100 MG TABLET PO SCH (08:46)
[2020-10-17] MEDS: FOLIC ACID 1 MG TABLET PO SCH (08:46)
[2020-10-17] MEDS: predniSONE 5 MG TABLET PO SCH (08:46)
[2020-10-17] MEDS: EYE ITCH RELIEF EACHEYE PRN ×2 (08:47→22:56)
[2020-10-17] MEDS: SPIRONOLACTONE 25 MG TABLET PO SCH (08:47)
[2020-10-17] MEDS: PROLENSA EYE EACHEYE SCH (08:47)
[2020-10-17] MEDS: ENSURE ENLIVE (VAN) 240 ML LIQUID PO SCH ×2 (08:48→17:43)
[2020-10-17] MEDS: HYDROCODONE/APAP 10-325 MG TABLET PO PRN ×2 (08:49→14:53)
--- NOTE | 2020-10-17 12:09 | NUR ---
WOUND CARE CONSULT: PT SEEN FOR SKIN TEARS TO LEFT INNER THIGH. PT STATES MAY HAVE SCRAPED HER SKIN WHEN GETTING OFF COMMODE. RECOMMENDATIONS MADE FOR WOUND CARE AND SKIN PROTECTION. DISCUSSED WITH NURSING STAFF. PT HAS FRAGILE SKIN. IN AGREEMENT WITH PLAN OF CARE. Addendum: 10/17/20 at 1210 by SHAZIA MON RN Amended: Links added.
--- NOTE | 2020-10-17 14:12 | NUR ---
INTERDISCIPLINARY TEAM CONFERENCE
[2020-10-17 15:06] LABS: EOSINOPHILS % (MANUAL) 5 % (0-8); LYMPHOCYTES % (MANUAL) 15 % (20-40)
[2020-10-17 15:07] LABS: MONOCYTES % (MANUAL) 10 % (2-10); NEUTROPHILS % (MANUAL) 70 % (42-75)
[2020-10-17 16:15] VITALS: BP 116/56
--- NOTE | 2020-10-17 19:09 | NUR ---
End of shift note: Pt in no acute distress, all needs met at this time. Due medications given per order, no a/r noted. Pt requested PRN pain medication today, administered per order, effective per pt. Pt able to safely ambulate and transfer to toilet today, TLSO brace in place when OOB. Dr. Jose G SALCIDO at bedside with new order. DERRICK CAR OPERATOR Faith Patel at bedside this afternoon, spoke with pt, pt to have bone marrow biospy tomorrow. Pt aware, consent signed. Wound care administered per order with wound care nurse at bedside. Safety measures, fall precautions, aspiration precautions in place. Call light and belongings within reach. Will endorse care to manufacturing shift supervisor nurse.
[2020-10-17 20:00] VITALS: BP 131/60
[2020-10-17] MEDS: NITROFURANTOIN/NITROFURAN MAC 100 MG CAPSULE PO SCH (20:36)
[2020-10-17] MEDS: OXYCODONE/APAP 5-325 MG TABLET PO PRN (20:36)
[2020-10-18] MEDS: HYDROCODONE/APAP 10-325 MG TABLET PO PRN ×2 (00:04→08:25)
[2020-10-18 04:00] VITALS: BP 102/42
[2020-10-18 06:35] LABS: BASOPHILS % (AUTO) 0.6 % (0.0-2.0); EOSINOPHILS # (AUTO) 0.1 K/uL (0.0-0.7); EOSINOPHILS % (AUTO) 3.7 % (0.0-7.0); HEMATOCRIT 37.8 % (31.2-41.9); HEMOGLOBIN 12.7 g/dL (10.9-14.3); LYMPHOCYTES # (AUTO) 0.6 K/uL (20.0-40.0); LYMPHOCYTES % (AUTO) 19.2 % (20.5-51.5); MEAN CORPUSCULAR HEMOGLOBIN 33.8 uug (24.7-32.8); MEAN CORPUSCULAR HGB CONC 34 g/dL (32.3-35.6); MEAN CORPUSCULAR VOLUME 100.4 fL (75.5-95.3); MONOCYTES # (AUTO) 0.4 K/uL (2.0-10.0); MONOCYTES % (AUTO) 12.3 % (0.0-11.0); NEUTROPHILS # (AUTO) 1.9 K/uL (1.8-8.9); NEUTROPHILS % (AUTO) 64.2 % (38.5-71.5); PLATELET COUNT (AUTO) 55 K/uL (179-408); RED BLOOD CELL COUNT(AUTO) 3.77 MIL/uL (3.63-4.92)
[2020-10-18] MEDS: PANTOPRAZOLE SODIUM 40 MG TABLET.DR PO SCH ×2 (06:43→08:19)
--- NOTE | 2020-10-18 06:43 | NUR ---
Patient alert oriented times 4 at room air c/o pain at lower back and neck Prn pain meds administered as ordered non pharmacological efforts done to relieve pain at night patient slept throughout night with no discomfort assisted patient to walk to bathroom with FWW voided times 2. All needs anticipated all belongings with in reach. patient refused AM Pantoprazole sodium 40 mg, risk and benefits discussed patient aware refused. respected patients right. clean and dry. Needs anticipated will endorse accordingly to AM shift Nurse. No acute distress noted. No c/o pain at this time resting in bed.
--- NOTE | 2020-10-18 07:15 | NUR ---
morning shift report received, patient awake in bed, no complains of any discomfort. call light within reach. will continue to monitor.
[2020-10-18] MEDS: PROLENSA EYE EACHEYE SCH (08:11)
[2020-10-18 08:12] VITALS: BP 114/45
[2020-10-18] MEDS: NITROFURANTOIN/NITROFURAN MAC 100 MG CAPSULE PO SCH ×2 (08:12→20:47)
[2020-10-18] MEDS: FUROSEMIDE 20 MG TABLET PO SCH (08:12)
[2020-10-18] MEDS: SPIRONOLACTONE 25 MG TABLET PO SCH (08:12)
[2020-10-18] MEDS: THIAMINE HCL 100 MG TABLET PO SCH (08:12)
[2020-10-18] MEDS: FOLIC ACID 1 MG TABLET PO SCH (08:12)
[2020-10-18] MEDS: predniSONE 5 MG TABLET PO SCH (08:12)
[2020-10-18] MEDS: ENSURE ENLIVE (VAN) 240 ML LIQUID PO SCH ×2 (08:27→17:27)
[2020-10-18 15:14] VITALS: BP 119/53
--- NOTE | 2020-10-18 18:24 | NUR ---
patient awake and alert x4. watching tv, no complains of any pain or discomfort at this time. call light kept within reach. will report to oncoming nurse.
[2020-10-18] MEDS: OXYCODONE/APAP 5-325 MG TABLET PO PRN (19:06)
[2020-10-18 20:30] VITALS: BP 127/61
[2020-10-19] MEDS: HYDROCODONE/APAP 10-325 MG TABLET PO PRN ×4 (00:51→20:28)
[2020-10-19 04:30] VITALS: BP 104/48
[2020-10-19] MEDS: PANTOPRAZOLE SODIUM 40 MG TABLET.DR PO SCH (06:12)
--- NOTE | 2020-10-19 06:36 | NUR ---
All Needs attended. VSS. Patient Slept well throughout the night.Voiding well. due medication administered as ordered and tolerated well. Will endorse accordingly to AM nurse.
[2020-10-19 08:25] VITALS: BP 130/60
[2020-10-19] MEDS: THIAMINE HCL 100 MG TABLET PO SCH (08:36)
[2020-10-19] MEDS: SULFAMETH/TRIMETH 800/160 MG TABLET PO SCH ×2 (08:36→20:28)
[2020-10-19] MEDS: SPIRONOLACTONE 25 MG TABLET PO SCH (08:36)
[2020-10-19] MEDS: FUROSEMIDE 20 MG TABLET PO SCH (08:36)
[2020-10-19] MEDS: FOLIC ACID 1 MG TABLET PO SCH (08:37)
[2020-10-19] MEDS: predniSONE 5 MG TABLET PO SCH (08:37)
[2020-10-19] MEDS: LACTULOSE 20 G/30 ML LIQUID UDC PO PRN (08:42)
[2020-10-19] MEDS: ENSURE ENLIVE (VAN) 240 ML LIQUID PO SCH ×2 (08:45→16:58)
[2020-10-19] MEDS: PROLENSA EYE EACHEYE SCH (08:45)
[2020-10-19 15:55] VITALS: BP 131/63
--- NOTE | 2020-10-19 18:28 | NUR ---
no changes noted during shift, dressing changed to right arm and left thigh abrasions, still open, red in color, no active bleeding noted, no sign and symptoms of infection noted, no chills, no fever, no nausea, no vomiting.
[2020-10-19 19:40] LABS: BASOPHILS % (AUTO) 0.5 % (0.0-2.0); EOSINOPHILS % (AUTO) 1.9 % (0.0-7.0); HEMATOCRIT 37.9 % (31.2-41.9); HEMOGLOBIN 12.7 g/dL (10.9-14.3); LYMPHOCYTES # (AUTO) 0.3 K/uL (20.0-40.0); LYMPHOCYTES % (AUTO) 12.8 % (20.5-51.5); MEAN CORPUSCULAR HGB CONC 34 g/dL (32.3-35.6); MEAN CORPUSCULAR VOLUME 101.1 fL (75.5-95.3); MONOCYTES # (AUTO) 0.2 K/uL (2.0-10.0); MONOCYTES % (AUTO) 9.6 % (0.0-11.0); NEUTROPHILS # (AUTO) 1.9 K/uL (1.8-8.9); NEUTROPHILS % (AUTO) 75.2 % (38.5-71.5); PLATELET COUNT (AUTO) 60 K/uL (179-408); RED BLOOD CELL COUNT(AUTO) 3.75 MIL/uL (3.63-4.92); WHITE BLOOD COUNT (AUTO) 2.5 K/uL (3.8-11.8)
[2020-10-19 20:32] VITALS: BP 113/58
--- NOTE | 2020-10-19 21:15 | NUR ---
Resting in bed AxOx4, no acute distress noted. VSS. C/O 7/10 pain in lower back and neck. Per pt request administered NORCO PRN. All due medications administered and tolerated well. Right arm dressing clean dry and intact. Needs attended. Kept comfortable. Will continue with plan of care and monitor throughout the night.
[2020-10-19] MEDS: OXYCODONE/APAP 5-325 MG TABLET PO PRN (23:03)
[2020-10-20 04:00] VITALS: BP 112/53
[2020-10-20] MEDS: PANTOPRAZOLE SODIUM 40 MG TABLET.DR PO SCH (06:35)
[2020-10-20 08:00] VITALS: BP 104/50
[2020-10-20] MEDS: SPIRONOLACTONE 25 MG TABLET PO SCH (08:27)
[2020-10-20] MEDS: THIAMINE HCL 100 MG TABLET PO SCH (08:27)
[2020-10-20] MEDS: predniSONE 5 MG TABLET PO SCH (08:27)
[2020-10-20] MEDS: FOLIC ACID 1 MG TABLET PO SCH (08:27)
[2020-10-20] MEDS: SULFAMETH/TRIMETH 800/160 MG TABLET PO SCH ×2 (08:28→20:13)
[2020-10-20] MEDS: FUROSEMIDE 20 MG TABLET PO SCH (08:28)
[2020-10-20] MEDS: ENSURE ENLIVE (VAN) 240 ML LIQUID PO SCH (08:28)
[2020-10-20] MEDS: PROLENSA EYE EACHEYE SCH (08:32)
[2020-10-20] MEDS: OXYCODONE/APAP 5-325 MG TABLET PO PRN ×2 (08:51→23:21)
[2020-10-20] MEDS: HYDROCODONE/APAP 10-325 MG TABLET PO PRN ×2 (13:13→20:13)
[2020-10-20 15:26] VITALS: BP 119/57
--- NOTE | 2020-10-20 19:24 | NUR ---
no changes noted during shift, patient is alert, oriented x4, ambulatory
[2020-10-20] MEDS: EYE ITCH RELIEF EACHEYE PRN (20:14)
[2020-10-20 20:27] VITALS: BP 125/63
[2020-10-21 04:48] VITALS: BP 101/48
[2020-10-21] MEDS: PANTOPRAZOLE SODIUM 40 MG TABLET.DR PO SCH (06:30)
[2020-10-21] MEDS: FOLIC ACID 1 MG TABLET PO SCH (08:30)
[2020-10-21] MEDS: SULFAMETH/TRIMETH 800/160 MG TABLET PO SCH ×2 (08:30→20:45)
[2020-10-21] MEDS: predniSONE 5 MG TABLET PO SCH (08:30)
[2020-10-21] MEDS: THIAMINE HCL 100 MG TABLET PO SCH (08:30)
[2020-10-21] MEDS: SPIRONOLACTONE 25 MG TABLET PO SCH (08:30)
[2020-10-21] MEDS: FUROSEMIDE 20 MG TABLET PO SCH (08:31)
[2020-10-21] MEDS: PROLENSA EYE EACHEYE SCH (08:32)
[2020-10-21] MEDS: HYDROCODONE/APAP 10-325 MG TABLET PO PRN ×3 (08:32→22:55)
[2020-10-21 08:44] VITALS: BP 104/46
--- NOTE | 2020-10-21 09:00 | NUR ---
Patient in bed, alert and oriented x 4, in room air saturating AT 95%. All due meds given per MD order, placed call light within reach, all needs met promptly. Went off the unit for therapy at 1000.
[2020-10-21] MEDS: OXYCODONE/APAP 5-325 MG TABLET PO PRN (12:37)
--- NOTE | 2020-10-21 13:13 | NUR ---
Dressing is changed on the right upper arm and left inner thigh per MD order. Wounds are ok and no bleeding noted.
[2020-10-21 16:13] VITALS: BP 107/42
--- NOTE | 2020-10-21 16:27 | NUR ---
Patient is frequently asking for her pain medications. Notified Dr. Chung and ordered to discontinue Percocet and [place] 10-325 every 4 hours as needed. Patient is aware.
--- NOTE | 2020-10-21 17:54 | NUR ---
Obtained consent from the patient for the bone marrow biopsy and aspiration procedure for iqra. 10/22/[address] Batista.
[2020-10-21 20:27] VITALS: BP 110/50
[2020-10-22 04:46] VITALS: BP 102/49
--- NOTE | 2020-10-22 05:58 | NUR ---
Resting in bed AxOx4, no acute distress noted. VSS. Assisted pt with night shower. C/O 8/10 pain in lower back and neck. Per pt request administered NORCO PRN. All due medications administered and tolerated well. Right arm dressing and left thigh dressing changed, clean, dry and intact. Needs attended. Kept comfortable. Will continue with plan of care and endorse to oncoming shift.
[2020-10-22] MEDS: PANTOPRAZOLE SODIUM 40 MG TABLET.DR PO SCH (06:02)
[2020-10-22 06:46] LABS: BASOPHILS % (AUTO) 0.6 % (0.0-2.0); EOSINOPHILS # (AUTO) 0.2 K/uL (0.0-0.7); EOSINOPHILS % (AUTO) 5.1 % (0.0-7.0); HEMATOCRIT 36.6 % (31.2-41.9); HEMOGLOBIN 12.3 g/dL (10.9-14.3); LYMPHOCYTES # (AUTO) 0.8 K/uL (20.0-40.0); LYMPHOCYTES % (AUTO) 23.8 % (20.5-51.5); MEAN CORPUSCULAR HEMOGLOBIN 34.1 uug (24.7-32.8); MEAN CORPUSCULAR HGB CONC 34 g/dL (32.3-35.6); MEAN CORPUSCULAR VOLUME 101.9 fL (75.5-95.3); MONOCYTES # (AUTO) 0.5 K/uL (2.0-10.0); MONOCYTES % (AUTO) 14.3 % (0.0-11.0); NEUTROPHILS # (AUTO) 1.9 K/uL (1.8-8.9); NEUTROPHILS % (AUTO) 56.2 % (38.5-71.5); PLATELET COUNT (AUTO) 61 K/uL (179-408); WHITE BLOOD COUNT (AUTO) 3.3 K/uL (3.8-11.8)
[2020-10-22 06:52] LABS: BILIRUBIN,TOTAL 0.9 mg/dL (0.2-1.0); POTASSIUM 4.3 mmol/L (3.5-5.1); TOTAL PROTEIN, SERUM 6.5 g/dL (6.4-8.2)
[2020-10-22] MEDS: SPIRONOLACTONE 25 MG TABLET PO SCH (08:56)
[2020-10-22] MEDS: PROLENSA EYE EACHEYE SCH (08:56)
[2020-10-22] MEDS: SULFAMETH/TRIMETH 800/160 MG TABLET PO SCH ×2 (08:56→21:57)
[2020-10-22] MEDS: predniSONE 5 MG TABLET PO SCH (08:57)
[2020-10-22] MEDS: FUROSEMIDE 20 MG TABLET PO SCH (08:57)
[2020-10-22] MEDS: THIAMINE HCL 100 MG TABLET PO SCH (08:57)
[2020-10-22] MEDS: FOLIC ACID 1 MG TABLET PO SCH (08:57)
[2020-10-22] MEDS: HYDROCODONE/APAP 10-325 MG TABLET PO PRN ×3 (09:16→19:13)
[2020-10-22 11:22] VITALS: BP 113/46
--- NOTE | 2020-10-22 15:44 | NUR ---
Pt in no acute distress, visiting with friend. Due medications given per order, no a/r noted. Pt report pain 7/10 in back and neck, pt requested PRN [place], administered per order, per pt effective. Pt OOB to restroom safely, per pt 1 BM today, TLSO brace in place. Wound care administered per order. Pt to have bone marrow biopsy with Dr. Batista today, pt aware, consent signed. Continue Rehab plan of care.
[2020-10-22 16:18] VITALS: BP 111/48
[2020-10-22] MEDS ORDERED: LIDOCAINE HCL 1% 20 ML VIAL IJ PRN (20:00)
[2020-10-22 20:18] VITALS: BP 127/58
[2020-10-22 21:46] LABS: BASOPHILS % (AUTO) 0.8 % (0.0-2.0); EOSINOPHILS # (AUTO) 0.1 K/uL (0.0-0.7); EOSINOPHILS % (AUTO) 2.8 % (0.0-7.0); HEMATOCRIT 39.4 % (31.2-41.9); HEMOGLOBIN 13.1 g/dL (10.9-14.3); LYMPHOCYTES # (AUTO) 0.8 K/uL (20.0-40.0); LYMPHOCYTES % (AUTO) 17.7 % (20.5-51.5); MEAN CORPUSCULAR HEMOGLOBIN 33.6 uug (24.7-32.8); MEAN CORPUSCULAR HGB CONC 33 g/dL (32.3-35.6); MEAN CORPUSCULAR VOLUME 101.2 fL (75.5-95.3); MONOCYTES # (AUTO) 0.5 K/uL (2.0-10.0); MONOCYTES % (AUTO) 11.3 % (0.0-11.0); NEUTROPHILS # (AUTO) 2.9 K/uL (1.8-8.9); NEUTROPHILS % (AUTO) 67.4 % (38.5-71.5); PLATELET COUNT (AUTO) 72 K/uL (179-408); WHITE BLOOD COUNT (AUTO) 4.3 K/uL (3.8-11.8)
[2020-10-22 22:12] LABS: EOSINOPHILS % (MANUAL) 1 % (0-8); LYMPHOCYTES % (MANUAL) 37 % (20-40); MONOCYTES % (MANUAL) 8 % (2-10); NEUTROPHILS % (MANUAL) 54 % (42-75)
[2020-10-23] MEDS: HYDROCODONE/APAP 10-325 MG TABLET PO PRN ×4 (00:09→20:20)
--- NOTE | 2020-10-23 03:00 | NUR ---
Dr. Batista at bedside completed bone mayo biopsy, tolerated well. Specimen sent down to pathology. Axo4. No distress noted. C/o 5/10 pain administered NORCO PRN. Pt slept well throughout the night. Continue with plan of care.
[2020-10-23 04:30] VITALS: BP 111/43
[2020-10-23] MEDS: PANTOPRAZOLE SODIUM 40 MG TABLET.DR PO SCH (07:06)
[2020-10-23 08:07] VITALS: BP 111/50
[2020-10-23] MEDS: FUROSEMIDE 20 MG TABLET PO SCH (08:56)
[2020-10-23] MEDS: PROLENSA EYE EACHEYE SCH (08:56)
[2020-10-23] MEDS: THIAMINE HCL 100 MG TABLET PO SCH (08:57)
[2020-10-23] MEDS: SULFAMETH/TRIMETH 800/160 MG TABLET PO SCH ×2 (08:57→20:52)
[2020-10-23] MEDS: SPIRONOLACTONE 25 MG TABLET PO SCH (08:57)
[2020-10-23] MEDS: FOLIC ACID 1 MG TABLET PO SCH (08:57)
[2020-10-23] MEDS: predniSONE 5 MG TABLET PO SCH (08:57)
[2020-10-23 14:52] VITALS: BP 134/57
--- NOTE | 2020-10-23 18:28 | NUR ---
Pt in no acute distress, all needs met. Due medications administered per order, no a/r noted. Dr. Chung at bedside this afternoon, spoke with pt, new order in place. Pt stated feeling "weak" and "dizzy" during PT today, Dr. Chung aware. VSS. Pt stated feeling "better" this afternoon, per OT did well with therapeutic exercises. Pt reported left eye discomfort, pupils PERRLA, no redness, drainage noted, Dr. Chung aware. Per pt, will follow up with her director corporate compliance upon discharge. No BM noted. Wound care administered per order. Pt s/p bone marrow bioposy, some dry sanguinous drainage noted on dressing, no active bleeding noted. FIELD TEST ENGINEER Faith Patel at bedside, aware. Safety ensured. Will endorse to shift stacker nurse for continuity of care.
[2020-10-23 20:00] VITALS: BP 105/51
[2020-10-23] MEDS: PREGABALIN 25 MG CAPSULE PO SCH (21:34)
[2020-10-24] MEDS: HYDROCODONE/APAP 10-325 MG TABLET PO PRN ×4 (00:53→20:35)
--- NOTE | 2020-10-24 02:45 | NUR ---
Awake alert and oriented x4 OOB to the BR with walker. Voiding freely. Pain meds given as needed. VSS. No acute distress noted. Will monitor patient. Fall precautions maintained. Siderails up for safety. All due meds given as ordered.
[2020-10-24 05:41] VITALS: BP 113/60
[2020-10-24] MEDS: PREGABALIN 25 MG CAPSULE PO SCH ×3 (06:03→21:20)
[2020-10-24] MEDS: PANTOPRAZOLE SODIUM 40 MG TABLET.DR PO SCH (06:18)
[2020-10-24 08:11] VITALS: BP 116/54
[2020-10-24] MEDS: PROLENSA EYE EACHEYE SCH (09:04)
[2020-10-24] MEDS: SPIRONOLACTONE 25 MG TABLET PO SCH (09:05)
[2020-10-24] MEDS: THIAMINE HCL 100 MG TABLET PO SCH (09:05)
[2020-10-24] MEDS: predniSONE 5 MG TABLET PO SCH (09:05)
[2020-10-24] MEDS: FOLIC ACID 1 MG TABLET PO SCH (09:05)
[2020-10-24] MEDS: FUROSEMIDE 20 MG TABLET PO SCH (09:05)
[2020-10-24] MEDS: SULFAMETH/TRIMETH 800/160 MG TABLET PO SCH ×2 (09:05→20:35)
--- NOTE | 2020-10-24 14:01 | NUR ---
INTERDISCIPLINARY TEAM CONFERENCE
[2020-10-24 14:52] VITALS: BP 107/51
--- NOTE | 2020-10-24 18:00 | NUR ---
Pt finishing dinner, no acute distress. Medications given per order, no a/r noted. Pt OOB to restroom using TLSO brace and FWW, no BM noted today. Wound care administered per order. Pt reported some dizziness today. Dr. Chung aware, spoke with pt and this aligner typewriter at bedside. Per pt, she has experienced vertigo for "a long time". Pt stated "sorry I did not tell you that before". Pt to be discharged tomorrow, pt aware. manager of change Rashi spoke with pt regarding follow up appt with her eye surgeon. Safety ensured. Call light and belongings within reach. Will endorse to medical office coordinator nurse for continuity of care.
[2020-10-24 20:00] VITALS: BP 106/80
[2020-10-25] MEDS: HYDROCODONE/APAP 10-325 MG TABLET PO PRN ×3 (00:45→14:27)
--- NOTE | 2020-10-25 01:49 | NUR ---
AAOx4 OOB to the BR with walker. Voiding well. Needs attended. VSS. Pain meds given as needed. Relief noted. Kept comfortable. Possible d/c in am to [facility]. No acute distress noted.
[2020-10-25 04:00] VITALS: BP 102/51
[2020-10-25] MEDS: PREGABALIN 25 MG CAPSULE PO SCH ×2 (05:45→13:09)
[2020-10-25] MEDS: PANTOPRAZOLE SODIUM 40 MG TABLET.DR PO SCH (06:12)
[2020-10-25 07:53] VITALS: BP 123/55
[2020-10-25] MEDS: PROLENSA EYE EACHEYE SCH (08:02)
[2020-10-25] MEDS: THIAMINE HCL 100 MG TABLET PO SCH (08:03)
[2020-10-25] MEDS: SULFAMETH/TRIMETH 800/160 MG TABLET PO SCH (08:03)
[2020-10-25] MEDS: SPIRONOLACTONE 25 MG TABLET PO SCH (08:03)
[2020-10-25] MEDS: FOLIC ACID 1 MG TABLET PO SCH (08:03)
[2020-10-25] MEDS: predniSONE 5 MG TABLET PO SCH (08:03)
[2020-10-25] MEDS: FUROSEMIDE 20 MG TABLET PO SCH (08:03)
--- NOTE | 2020-10-25 11:13 | NUR ---
REPORT GIVEN TO RENAY FROM [facility]
--- NOTE | 2020-10-25 14:14 | NUR ---
patient is alert oriented x4, no sob, resp even nonlabored, skin warm and dry to touch, ambulatory, self care, stand by assist only, no distress noted, patient teaching done, verbalized understanding of it, belongings are accounted and signed, being picked up by ambulance Addendum: 10/25/20 at 1442 by ALEJANDRO ENCINAS RN, RN patient refused the pictures to be taken for her right arm abrasions and to her left thigh abrasion from the fall at home, patient stated she is dressed up already and they are healing. risks and benefits explained, patient verbalized understanding of it.
[2020-10-25 14:38] VITALS: BP 108/48
--- NOTE | 2020-10-25 14:42 | NUR ---
Patient picked up by ambulance, no IV access on patient, patent belongings are sent with patient.
[2020-10-29 15:48] LABS: HEPATITIS B SURFACE AG NEGATIVE
[2020-10-29 15:49] LABS: HEPATITIS B SURFACE AB NON REACTIVE
== END 2020-10-25 14:47 | DRG 560 ==
PROVIDERS: ADMIT Physical Medicine & Rehabilitation Pain Medicine; ATTEND Physical Medicine & Rehabilitation Pain Medicine
PROC: 07DR3ZX Extraction of Iliac Bone Marrow, Percutaneous Approach, Diagnostic (ICD-10-PCS; principal; 2020-10-22)
DX: S22.081D Stable burst fracture of T11-T12 vertebra, subsequent encounter for fracture with routine healing (principal); D68.9 Coagulation defect, unspecified; E44.0 Moderate protein-calorie malnutrition; D68.59 Other primary thrombophilia; N39.0 Urinary tract infection, site not specified; W18.30XD Fall on same level, unspecified, subsequent encounter; D70.9 Neutropenia, unspecified; D69.59 Other secondary thrombocytopenia; K74.60 Unspecified cirrhosis of liver; D75.89 Other specified diseases of blood and blood-forming organs; E83.42 Hypomagnesemia; G89.29 Other chronic pain; M48.04 Spinal stenosis, thoracic region; K57.30 Diverticulosis of large intestine without perforation or abscess without bleeding; B96.4 Proteus (mirabilis) (morganii) as the cause of diseases classified elsewhere; K80.20 Calculus of gallbladder without cholecystitis without obstruction
CPT/HCPCS: 36415; 70030-TC; 85025; 85610; 85730; 86706; 86803; 87077; 87086; 87340; J3490; J7512

== ENCOUNTER 2021-01-29 06:38 | Inpatient (IN) | payer MEDICARE, BC ==
[~2021-01-29] VITALS: Ht 170.2 cm; Wt 65.8 kg
[2021-01-29] MEDS ORDERED: MORPHINE SULFATE 2 MG/1 ML DISP.SYRIN IM ONE (07:00)
[2021-01-29] MEDS ORDERED: TDAP DIPH,PERTUSS,TET VAC/PF 0.5 ML DISP.SYRIN IM ONE ×2 (07:00→07:12)
[2021-01-29] MEDS ORDERED: CYAN100T44 PO (07:10)
[2021-01-29] MEDS ORDERED: alpha-lipoic acid PO (07:10)
[2021-01-29] MEDS ORDERED: ALEN70TA80 PO (07:10)
[2021-01-29] MEDS ORDERED: CALCIUM CARBONATE PO (07:10)
[2021-01-29] MEDS ORDERED: ALLO300T2 PO (07:10)
[2021-01-29] MEDS ORDERED: ASCO500T10 PO (07:10)
[2021-01-29] MEDS ORDERED: MORPHINE SULFATE 2 MG/1 ML DISP.SYRIN ONE ×2 (07:11→08:14)
[2021-01-29] MEDS ORDERED: FURO-152 PO (07:22)
[2021-01-29] MEDS ORDERED: SPIR25TA6 PO (07:22)
[2021-01-29] MEDS ORDERED: PREG75CA PO (07:22)
[2021-01-29] MEDS ORDERED: THIA100T13 PO (07:22)
[2021-01-29] MEDS ORDERED: LACT10SO3 PO (07:22)
[2021-01-29] MEDS ORDERED: MIDO2.5T PO (07:22)
[2021-01-29] MEDS ORDERED: CHOL1CRY2 PO (07:22)
[2021-01-29] MEDS ORDERED: MAGN400C PO (07:22)
[2021-01-29] MEDS ORDERED: OMEP20CA15 PO (07:22)
[2021-01-29] MEDS ORDERED: TRAZ-182 PO (07:22)
[2021-01-29] MEDS ORDERED: METO-356 PO (07:22)
[2021-01-29] MEDS ORDERED: MECL-182 PO (07:22)
[2021-01-29] MEDS ORDERED: HYDR-4209 PO (07:22)
[2021-01-29] MEDS ORDERED: MORPHINE SULFATE 2 MG/1 ML DISP.SYRIN IV ONE (08:00)
[2021-01-29] MEDS ORDERED: ONDANSETRON 4 MG/2 ML VIAL IV ONE (08:00)
[2021-01-29] MEDS ORDERED: ONDANSETRON 4 MG/2 ML VIAL ONE (08:14)
[2021-01-29 08:16] LABS: HEMATOCRIT 30.1 % (31.2-41.9); MEAN CORPUSCULAR HEMOGLOBIN 33.8 uug (24.7-32.8); MEAN CORPUSCULAR VOLUME 100.4 fL (75.5-95.3)
[2021-01-29 08:25] LABS: BILIRUBIN,DIRECT 0.4 mg/dL (0.0-0.2); CREATININE 0.8 mg/dL (0.6-1.3); POTASSIUM 3.9 mmol/L (3.5-5.1); TOTAL PROTEIN, SERUM 6.1 g/dL (6.4-8.2)
[2021-01-29 08:28] LABS: PLATELET COUNT (AUTO) 35 K/uL (179-408)
--- NOTE | 2021-01-29 08:35 | NUR ---
Per pt to be admitted, [facility] paged. SBAR report given to August via telephone.
--- NOTE | 2021-01-29 09:30 | NUR ---
Dr Gill spoke to Dr Campos for med/surg admit.
--- NOTE | 2021-01-29 09:56 | NUR ---
Report given by Bella from ER. Dr Campos made aware of admission.
--- NOTE | 2021-01-29 09:56 | NUR ---
Admitted patient from ER via hospital bed. Report received from ER. She is alert/oriented x4. Per ER she had mechanical fall from home. Dx Closed left ankle fracture. Able to make needs known. Skin assessment done. Patient was noted with scalp laceration, mauricio intact to the back of of the head and noted with minimal bleeding, packed with abdominal pad. She has short leg bandage to immobilize the left leg/ankle fracture. Reported excruciating pain, PRN pain medication given as ordered. Heplock intact to the right AC. Patient stated she wants DNR for code status. Wound care consulted. made aware, reconciled meds. Belongings list done and signed. Oriented patient to the room. Call light within reach. Will continue to monitor.
[2021-01-29] MEDS: MORPHINE SULFATE 2 MG/1 ML DISP.SYRIN IV PRN ×3 (10:48→21:39)
[2021-01-29 11:40] VITALS: BP 113/64
[2021-01-29] MEDS ORDERED: ONDANSETRON 4 MG/2 ML VIAL IV PRN (12:30)
[2021-01-29] MEDS ORDERED: HYDROCODONE/APAP 10-325 MG TABLET PO PRN (12:30)
[2021-01-29] MEDS ORDERED: Z GUARD REMEDY PASTE 57 GM TUBE TOP PRN (12:30)
[2021-01-29] MEDS ORDERED: MAGNESIUM HYDROXIDE 30 ML LIQUID UDC PO PRN (12:30)
[2021-01-29 14:48] LABS: EOSINOPHILS % (MANUAL) 5 % (0-8); LYMPHOCYTES % (MANUAL) 20 % (20-40); MONOCYTES % (MANUAL) 10 % (2-10); NEUTROPHILS % (MANUAL) 65 % (42-75)
[2021-01-29 16:00] VITALS: BP 114/49
[2021-01-29] MEDS: HYDROCODONE/APAP 10-325 MG TABLET PO PRN (17:32)
--- NOTE | 2021-01-29 19:00 | NUR ---
PATIENT ALERT ORIENTED, NO SOB NO CHEST PAIN, LEFT ANKLE THROUGH LEG HAS MARCI WRAPPED DUE TO FX. PATIENT LEFT ANKLE/LEG HAS SWELLING NOTED, KEPT IT ELEVATED WITH PILLOW. CONT TO MONITOR.
--- NOTE | 2021-01-29 19:00 | NUR ---
PATIENT HAS HEAD DRESSING, NO COMPLAIN OF PAIN, NO FURTHER BLEEDING NOTED ON HEAD/SCALP LACERATION. CONT TO MONITOR.
--- NOTE | 2021-01-29 19:35 | NUR ---
Reported minimal-moderate bleeding to the back of the head to Dr. Campos, continue to monitor as ordered. PRN medication given as ordered. All needs attended. No distress identified. Kept left leg elevated for perfusion and comfort. Dressing intact to the back of the head. Endorsed to the next shift.
[2021-01-29 20:00] VITALS: BP 92/49
--- NOTE | 2021-01-29 22:16 | NUR ---
PATIENT ALERT ORIENTED, NO SOB NO CHEST PAIN. PATIENT COMPLAIN OF PAIN ON LEFT ANKLE WRAPPED WITH MARCI BANDAGES, OPENED THE MARCI BANDAGES AND LEFT LEG ANKLE HAS BLISTERS TOOK PICTURE AND PLACE IT ON THE CHART. PATIENT LEFT ANKLE REWRAPPED LOSELY WITH MARCI BANDAGES TOGETHER WITH REMOVABLE CAST/ IMMOBILIZER., AND MORPHINE MEDS GIVES FOR PAIN MANAGEMENT. CONT TO MONITOR.
[2021-01-30] MEDS: MORPHINE SULFATE 2 MG/1 ML DISP.SYRIN IV PRN ×4 (04:40→21:10)
--- NOTE | 2021-01-30 05:26 | NUR ---
PATIENT BP 80/47 SITTING DOWN, NOTIFY ASHLEY COLE AWAITING FOR RESPONSE, PATIENT ALERT ORIENTED, NO DIZZINESS, CONT ON MORPHINE 2MG IV FOR PAIN OF LEFT ANKLE FRACTURE. PLACE ICE PACK ON SIDE OF THE LEFT ANKLE FOR PAIN AND COMFORT. CONT TO MONITOR.
[2021-01-30 05:31] VITALS: BP 83/47
[2021-01-30 06:03] LABS: HEMATOCRIT 23.8 % (31.2-41.9); MEAN CORPUSCULAR HEMOGLOBIN 34.1 uug (24.7-32.8)
[2021-01-30] MEDS: PANTOPRAZOLE SODIUM 40 MG TABLET.DR PO SCH (06:08)
[2021-01-30 06:09] VITALS: BP 114/44
--- NOTE | 2021-01-30 06:09 | NUR ---
PATIENT ALERT ORIENTED, NO SOB NO CHEST PAIN, NO HEADACHE NO DIZZINESS, KEPT HOB LOWER, RECHECK BP 114/44, HR 81, CONT PAIN MANAGEMENT, ASHLEY COLE AWARE OF THE PATIENT LOW BP. CONT TO MONITOR.
[2021-01-30 06:21] LABS: PLATELET COUNT (AUTO) 35 K/uL (179-408)
[2021-01-30 06:45] LABS: EOSINOPHILS % (MANUAL) 8 % (0-8); LYMPHOCYTES % (MANUAL) 24 % (20-40); MONOCYTES % (MANUAL) 13 % (2-10); NEUTROPHILS % (MANUAL) 55 % (42-75)
[2021-01-30 07:14] LABS: THYROID STIMULATING HORMONE 5.236 mIU/mL (0.358-3.740)
[2021-01-30 07:16] LABS: CREATININE 0.9 mg/dL (0.6-1.3); PHOSPHOROUS 3.6 mg/dL (2.5-4.9); POTASSIUM 4.4 mmol/L (3.5-5.1)
--- NOTE | 2021-01-30 08:30 | NUR ---
PT A/OX4, 3 KERON ON THE BACK OF HER HEAD, NO SIGNS OF BLEEDING, COVERED WITH BOARDERED GAUZE. PT ON ROOM AIR, NO SIGNS OF DISTRESS, NO REPORTS OF PAIN. PT HAS IV ON THE LEFT AC 20G, SALINE LOCK, BED LOW AND LOCKED WILL CONTINUE TO MONITOR.
[2021-01-30 09:35] VITALS: BP 115/48
[2021-01-30] MEDS: MIDODRINE HCL 5 MG TABLET PO SCH ×2 (09:42→17:53)
--- NOTE | 2021-01-30 11:01 | NUR ---
WOUND CARE CONSULT: PT PRESENTS WITH LEFT LOWER LEG SWELLING, DISCOLORATION AND INTACT BLISTERS, POSTERIOR SCALP CLOSED LACERATION WITH KERON AND EXTERNAL DEVICE TO LEFT CHEST, ALL PRESENT ON ADMISSION. SPLINT IN PLACE TO LEFT LOWER LEG. PT STATES HAS EXTERNAL HEM MARKER WHICH WAS PLACED PRIOR TO ADMISSION IN HER DOCTOR'S OFFICE. RECOMMENDATIONS MADE FOR WOUND CARE AND SKIN PROTECTION. PT TO BE SEEN BY ORTHOPEDIC SURGEON PER NURSING STAFF. PT IS CONTINENT AND ABLE TO TURN AND REPOSITION IN BED. PT HAS DISCOMFORT IN LEFT LOWER EXTREMITY UPON MOVEMENT. MD IN AGREEMENT WITH PLAN OF CARE. Addendum: 01/30/21 at 1105 by SHAZIA MON RN Amended: Links added.
[2021-01-30 11:37] VITALS: BP 105/47
--- NOTE | 2021-01-30 12:00 | NUR ---
PT SCHEDULED FOR SURGERY TOMORROW 01/31/2021, AT 0800 FOR AN ORIF OF THE LEFT ANKLE WITH IVAN. MADE AWARE THAT PT WANTS TO SEE SURGEON PRIOR TO SURGERY FOR CLARIFICATION OF RISKS/BENEFITS. WILL CONTINUE TO MONITOR.
[2021-01-30] MEDS ORDERED: LACTULOSE 20 G/30 ML LIQUID UDC PO PRN (12:15)
[2021-01-30] MEDS ORDERED: SPIRONOLACTONE 25 MG TABLET PO PRN (12:15)
[2021-01-30] MEDS ORDERED: MIDODRINE HCL 2.5 MG TABLET PO PRN (12:15)
[2021-01-30] MEDS ORDERED: MECLIZINE HCL 12.5 MG TABLET PO PRN (12:15)
[2021-01-30 15:33] VITALS: BP 96/33
[2021-01-30] MEDS ORDERED: Medication Not On Formulary EA (Omeprazole 20 MG) PO SCH (17:00)
[2021-01-30] MEDS: MAGNESIUM OXIDE 400 MG TABLET PO SCH (17:40)
[2021-01-30] MEDS: FUROSEMIDE 20 MG TABLET PO SCH (17:40)
--- NOTE | 2021-01-30 17:40 | NUR ---
IVAN WITH PT AT BEDSIDE, PT CONSENTING TO SURGERY, CONSENT FORM OBTAINED AND IN CHART.
[2021-01-30] MEDS: HYDROCODONE/APAP 10-325 MG TABLET PO PRN (20:16)
[2021-01-30] MEDS: TRAZODONE 50 MG TABLET PO PRN (21:09)
[2021-01-30 21:25] VITALS: BP 151/52
[2021-01-30 22:52] LABS: *BILIRUBIN,URIN NEGATIVE (NEGATIVE); *CLARITY,URINE CLEAR (CLEAR); *KETONES,URINE NEGATIVE (NEGATIVE); *UROBILINOGEN,URINE 0.2 E.U./dl (NORMAL); LEUKOCYTE ESTERASE ,URINE 1+ (NEGATIVE); NITRITE, URINE NEGATIVE (NEGATIVE); UGLUCOSE NEGATIVE (NEGATIVE)
[2021-01-30 22:53] LABS: *BLOOD, URINE TRACE (NEGATIVE); *COLOR,URINE STRAW (YELLOW)
[2021-01-30 23:08] LABS: BACTERIA,URINE NONE SEEN /HPF (NONE SEEN); RBC,URINE 0-3 /HPF (0-3); SQUAMOUS EPITHELIAL CELL,UR FEW /HPF (NONE SEEN)
[2021-01-31] VITALS (10 sets, daily range): BP systolic 101–126; BP diastolic 33–55
[2021-01-31] MEDS: ZOLPIDEM 5 MG TABLET PO PRN (01:17)
[2021-01-31] MEDS: HYDROCODONE/APAP 10-325 MG TABLET PO PRN ×2 (01:17→22:10)
--- NOTE | 2021-01-31 05:23 | NUR ---
Pt rested well in between care; pt kept NPO from Midnight; Dr Christie, anesthesiologist called and ordered to crossmatch 2 units of PRBC; both units are now available and blood consent in chart. pain management with [place] and Morphine; pt also in sinus tachycardia and is afebrile. needs attended.
[2021-01-31] MEDS: PANTOPRAZOLE SODIUM 40 MG TABLET.DR PO SCH (06:10)
[2021-01-31 06:19] LABS: MEAN CORPUSCULAR VOLUME 101.1 fL (75.5-95.3)
[2021-01-31 06:21] LABS: HEMATOCRIT 25.9 % (31.2-41.9); MEAN CORPUSCULAR HEMOGLOBIN 33.9 uug (24.7-32.8)
[2021-01-31 06:25] LABS: PLATELET COUNT (AUTO) 42 K/uL (179-408)
[2021-01-31] MEDS ORDERED: VANCOMYCIN 1000 MG VIAL ONE (06:57)
--- NOTE | 2021-01-31 07:20 | NUR ---
Patient received in bed, alert and oriented x1-2 and confused. Patient tried to get out of bed x2 this AM and reminded that she needs to stay in bed and that she is going to have a procedure for her left ankle this morning with Dr. Kelley. Patient expresses understanding regarding surgery and current NPO status. NSR on monitor. Patient on RA with no SOB or difficulties breathing. Left FA IV intact and patent with no redness or swelling noted at this time. Call light within easy reach. Will continue to monitor.
--- NOTE | 2021-01-31 07:46 | NUR ---
Patient taken to OR for procedure with Dr. Kelley.
[2021-01-31] MEDS: FUROSEMIDE 20 MG TABLET PO SCH ×3 (08:08→16:48)
[2021-01-31] MEDS: MAGNESIUM OXIDE 400 MG TABLET PO SCH ×2 (08:08→16:45)
[2021-01-31] MEDS: MIDODRINE HCL 5 MG TABLET PO SCH ×2 (08:08→16:45)
[2021-01-31] MEDS: CALCIUM CARBONATE 600 MG TABLET PO SCH (08:08)
[2021-01-31] MEDS: CHOLECALCIFEROL 1,000 UNIT TABLET PO SCH (08:09)
[2021-01-31] MEDS: CYANOCOBALAMIN 1,000 MCG TABLET PO SCH (08:09)
[2021-01-31] MEDS: THIAMINE HCL 100 MG TABLET PO SCH (08:09)
[2021-01-31] MEDS: ALLOPURINOL 300 MG TABLET PO SCH (08:09)
[2021-01-31] MEDS: METOPROLOL SUCCINATE XL 25 MG TAB.SR.24H PO SCH (08:09)
[2021-01-31] MEDS ORDERED: PROPOFOL 200 MG/20 ML BOTTLE ONE (08:21)
[2021-01-31] MEDS ORDERED: NOREPINEPHRINE BITARTRATE 4 MG/4 ML VIAL IV ONE (08:21)
[2021-01-31] MEDS ORDERED: FENTANYL CITRATE 100 MCG/2 ML AMPUL ONE ×2 (08:21→10:14)
[2021-01-31] MEDS ORDERED: ROCURONIUM BROMIDE 50 MG/5 ML VIAL ONE (08:22)
[2021-01-31] MEDS ORDERED: SUCCINYLCHOLINE CHLORIDE 200 MG/10 ML VIAL ONE (08:22)
[2021-01-31] MEDS ORDERED: Medication Not On Formulary EA (Pregabalin (Lyrica) 75 MG) PO SCH (09:00)
[2021-01-31] MEDS ORDERED: Medication Not On Formulary EA (Cholecalciferol (Vitamin D3) (Vitamin D3 CHEW.TAB) 1,000 PO SCH (09:00)
[2021-01-31] MEDS ORDERED: ONDANSETRON 4 MG/2 ML VIAL ONE (10:14)
--- NOTE | 2021-01-31 11:15 | NUR ---
Patient back on floor s/p left ankle ORIF with Dr. Kelley. Patient has DVT pump on right leg. Left leg with C/D/I dressing, elevated with ice. Patient on 3L O2 via NC with oxygen saturation at 95%. No acute distress noted. Patient c/o pain and administered morphine as ordered. Patient was confused in recovery and tried to get out of bed multiple times and received still confused. She intermittently is attempting to get out of bed, but is redirectable at this time. IVF running as ordered. Call light within easy reach. Fall precautions in place. Will continue to monitor.
[2021-01-31] MEDS: POTASSIUM CHLORIDE 20 MEQ in IV D5 1/2 NS 1000 ML 1,000 ML IV PRN (11:19)
[2021-01-31] MEDS: MORPHINE SULFATE 4 MG/1 ML DISP.SYRIN IV PRN ×3 (11:20→19:00)
--- NOTE | 2021-01-31 11:20 | NUR ---
Patient sinus tachycardic on monitor at this time.
--- NOTE | 2021-01-31 12:45 | NUR ---
Patient is still confused and trying to get out of bed multiple times. Unable to redirect. MD notified.
--- NOTE | 2021-01-31 13:15 | NUR ---
New order for 1:[address] Patiño at this time. Sitter now at bedside for safety.
[2021-01-31] MEDS: CEFAZOLIN 1 G in IV DEXTROSE 5% 50 ML IV SCH ×2 (14:10→21:30)
[2021-01-31] MEDS ORDERED: CEFAZOLIN 1 G in PREMIXED 1 EACH IV SCH (14:30)
--- NOTE | 2021-01-31 14:42 | NUR ---
Goddaughter Nikki at bedside.
[2021-01-31] MEDS: TRAZODONE 50 MG TABLET PO PRN (22:09)
[2021-02-01] MEDS: POTASSIUM CHLORIDE 20 MEQ in IV D5 1/2 NS 1000 ML 1,000 ML IV PRN (00:38)
[2021-02-01 04:25] VITALS: BP 108/86
[2021-02-01] MEDS: PANTOPRAZOLE SODIUM 40 MG TABLET.DR PO SCH (05:18)
[2021-02-01] MEDS: HYDROCODONE/APAP 10-325 MG TABLET PO PRN (05:18)
[2021-02-01 07:52] LABS: HEMATOCRIT 26.7 % (31.2-41.9); MEAN CORPUSCULAR HEMOGLOBIN 34.1 uug (24.7-32.8); MEAN CORPUSCULAR VOLUME 101.1 fL (75.5-95.3); PLATELET COUNT (AUTO) 53 K/uL (179-408)
[2021-02-01 08:09] LABS: PHOSPHOROUS 1.9 mg/dL (2.5-4.9); POTASSIUM 5.2 mmol/L (3.5-5.1)
[2021-02-01] MEDS: MAGNESIUM OXIDE 400 MG TABLET PO SCH ×2 (08:25→17:06)
[2021-02-01] MEDS: CYANOCOBALAMIN 1,000 MCG TABLET PO SCH (08:25)
[2021-02-01] MEDS: CHOLECALCIFEROL 1,000 UNIT TABLET PO SCH (08:26)
[2021-02-01] MEDS: THIAMINE HCL 100 MG TABLET PO SCH (08:26)
[2021-02-01] MEDS: ALLOPURINOL 300 MG TABLET PO SCH (08:26)
[2021-02-01] MEDS: CALCIUM CARBONATE 600 MG TABLET PO SCH (08:26)
[2021-02-01] MEDS: METOPROLOL SUCCINATE XL 25 MG TAB.SR.24H PO SCH (08:27)
[2021-02-01] MEDS: MIDODRINE HCL 5 MG TABLET PO SCH ×2 (08:29→17:06)
[2021-02-01] MEDS: MORPHINE SULFATE 4 MG/1 ML DISP.SYRIN IV PRN ×4 (08:29→17:34)
--- NOTE | 2021-02-01 08:45 | NUR ---
Patient received mid-shift, in bed, alert and oriented x2-3 and confused. 1:1 sitter at bedside for safety. Sinus tachycardic on monitor with HR in the 120s. Patient on RA with no SOB or difficulties breathing. Oxygen saturation on RA is 97%. Left FA IV patent with no redness or swelling noted at this time. Left leg dressing reinforced due to serosanguinous drainage. Call light within easy reach. Will continue to monitor.
[2021-02-01 08:48] VITALS: BP 146/71
[2021-02-01 12:00] VITALS: BP 139/88
[2021-02-01] MEDS: LACTULOSE 20 G/30 ML LIQUID UDC PO SCH ×2 (12:00→20:09)
[2021-02-01] MEDS ORDERED: SODIUM PHOSPHATE MM 15 MMOL in IV NORMAL SALINE 250 ML IV ONE (16:00)
[2021-02-01 16:04] VITALS: BP 130/70
--- NOTE | 2021-02-01 17:23 | NUR ---
One more episode of emesis at this time. Patient states zofran was effective for a bit and then she started feeling nauseous again. Dr. Patiño notified with new orders for Reglan PRN Q8H at this time. Will administer as ordered.
[2021-02-01] MEDS ORDERED: METOCLOPRAMIDE HCL 10 MG/2 ML VIAL IV PRN (17:30)
--- NOTE | 2021-02-01 18:21 | NUR ---
Reglan effective. No episodes of emesis after administration. Patient reports decreased feelings of nausea.
[2021-02-01] MEDS: CEFTRIAXONE 1 G in IV DEXTROSE 5% 50 ML IV SCH (18:27)
[2021-02-01] MEDS ORDERED: MAG HYDROX/AL HYDROX/SIMETH 30 ML LIQUID UDC PO PRN (18:30)
[2021-02-01 20:00] VITALS: BP 120/58
[2021-02-01 23:54] LABS: *BILIRUBIN,URIN NEGATIVE (NEGATIVE); *BLOOD, URINE NEGATIVE (NEGATIVE); *COLOR,URINE YELLOW (YELLOW); *KETONES,URINE NEGATIVE (NEGATIVE); *UROBILINOGEN,URINE 0.2 E.U./dl (NORMAL); LEUKOCYTE ESTERASE ,URINE 3+ (NEGATIVE); NITRITE, URINE NEGATIVE (NEGATIVE); UGLUCOSE NEGATIVE (NEGATIVE)
[2021-02-01 23:57] LABS: *CLARITY,URINE HAZY (CLEAR)
[2021-02-02 00:08] LABS: BACTERIA,URINE FEW /HPF (NONE SEEN); RBC,URINE 0-3 /HPF (0-3); SQUAMOUS EPITHELIAL CELL,UR FEW /HPF (NONE SEEN); WBC,URINE 20-50 /HPF (0-3)
[2021-02-02] MEDS: HYDROCODONE/APAP 10-325 MG TABLET PO PRN ×2 (00:59→15:52)
[2021-02-02] MEDS: MORPHINE SULFATE 4 MG/1 ML DISP.SYRIN IV PRN ×3 (01:07→21:46)
[2021-02-02] MEDS: ZOLPIDEM 5 MG TABLET PO PRN ×2 (02:41→23:00)
[2021-02-02 04:00] VITALS: BP 128/56
--- NOTE | 2021-02-02 05:23 | NUR ---
Pt slept intermittently. PRN ambien given to patient per her request to help her sleep. Denies SOB or chest pain. [place] given to patient for complaint of pain in left foot. Tolerated medication well. Sitter at bedside for patient's safety[facility] No other issues or concerns at this time. Will endorse to day shift.
[2021-02-02] MEDS: PANTOPRAZOLE SODIUM 40 MG TABLET.DR PO SCH (06:22)
[2021-02-02 06:54] LABS: HEMATOCRIT 23.7 % (31.2-41.9); MEAN CORPUSCULAR HEMOGLOBIN 34.7 uug (24.7-32.8); MEAN CORPUSCULAR VOLUME 101.7 fL (75.5-95.3); PLATELET COUNT (AUTO) 50 K/uL (179-408)
[2021-02-02 07:16] LABS: CREATININE 0.9 mg/dL (0.6-1.3); PHOSPHOROUS 2.9 mg/dL (2.5-4.9); POTASSIUM 4.3 mmol/L (3.5-5.1)
--- NOTE | 2021-02-02 07:30 | NUR ---
Patient received in bed, alert and oriented x3 and confused. 1:1 sitter at bedside for safety. Patient on RA with no SOB or difficulties breathing. Left FA IV patent with no redness or swelling noted at this time. Left leg dressing C/D/I. No c/o pain or nausea at this time. Call light within easy reach. Will continue to monitor.
[2021-02-02 07:36] VITALS: BP 123/68
[2021-02-02] MEDS: CALCIUM CARBONATE 600 MG TABLET PO SCH (08:40)
[2021-02-02] MEDS: CYANOCOBALAMIN 1,000 MCG TABLET PO SCH (08:41)
[2021-02-02] MEDS: ALLOPURINOL 300 MG TABLET PO SCH (08:41)
[2021-02-02] MEDS: MAGNESIUM OXIDE 400 MG TABLET PO SCH ×2 (08:41→16:00)
[2021-02-02] MEDS: LACTULOSE 20 G/30 ML LIQUID UDC PO SCH ×2 (08:42→20:36)
[2021-02-02] MEDS: METOPROLOL SUCCINATE XL 25 MG TAB.SR.24H PO SCH (08:43)
[2021-02-02] MEDS: MIDODRINE HCL 5 MG TABLET PO SCH ×2 (08:43→16:03)
[2021-02-02] MEDS: THIAMINE HCL 100 MG TABLET PO SCH (08:43)
[2021-02-02] MEDS: CHOLECALCIFEROL 1,000 UNIT TABLET PO SCH (09:01)
--- NOTE | 2021-02-02 12:15 | NUR ---
Patient pulled out IV and is agitated. Refuses new IV insertion at this time. States staff lost her pink drug container and that a pink-haired lady took it during her admission. States she is upset about her doctor, Frantz, but most of what she is stating is incoherent. Dr. Patiño notified of agitation and no IV status. 1:1 sitter still at bedside.
[2021-02-02 12:30] VITALS: BP 147/71
[2021-02-02] MEDS ORDERED: LORAZEPAM 1 MG TABLET PO PRN (12:30)
--- NOTE | 2021-02-02 12:40 | NUR ---
New orders for Ativan 1mg noted at this time. Will administer as ordered.
--- NOTE | 2021-02-02 13:30 | NUR ---
Patient agitated, but refuses Ativan at this time. Patient states that she just wants her morphine instead for pain, 9/10 left leg. Therefore, able to start a new IV on the right FA 22G. Morphine administered as ordered. Will continue to monitor. 1:1 sitter at bedside.
--- NOTE | 2021-02-02 14:30 | NUR ---
Physical therapist at bedside with patient. Patient was able to follow directions and stood up on right leg at bedside, tolerated fair. Patient then stated she was tired and wanted to go back to bed. Will continue to monitor.
[2021-02-02 16:00] VITALS: BP 138/62
[2021-02-02] MEDS: CEFTRIAXONE 1 G in IV DEXTROSE 5% 50 ML IV SCH (17:01)
[2021-02-02 19:54] VITALS: BP 115/48
[2021-02-03 04:00] VITALS: BP 135/58
[2021-02-03] MEDS: MORPHINE SULFATE 4 MG/1 ML DISP.SYRIN IV PRN ×4 (04:51→18:04)
--- NOTE | 2021-02-03 05:47 | NUR ---
Pt slept intermittently throughout the night. Denies SOB. Given morphine as ordered per patient's request of ankle pain. Sitter at bedside for patient's safety. Safety and comfort provided to patient. IV site intact. No other issues or concerns at this time, will endorse to day shift.
[2021-02-03] MEDS: PANTOPRAZOLE SODIUM 40 MG TABLET.DR PO SCH (06:22)
[2021-02-03 07:26] LABS: HEMATOCRIT 24.3 % (31.2-41.9); MEAN CORPUSCULAR HEMOGLOBIN 34.8 uug (24.7-32.8); MEAN CORPUSCULAR VOLUME 101.6 fL (75.5-95.3); PLATELET COUNT (AUTO) 56 K/uL (179-408)
[2021-02-03 07:49] LABS: CREATININE 0.7 mg/dL (0.6-1.3); PHOSPHOROUS 2.7 mg/dL (2.5-4.9); POTASSIUM 4.1 mmol/L (3.5-5.1)
[2021-02-03 08:00] VITALS: BP 136/62
--- NOTE | 2021-02-03 08:00 | NUR ---
Noted LEFT LEG with soft cast and wrapped with kaya wrap. Pt able to move toes and feel sensation. noted bruising on left calf area. Noted bruising on nape. and occipital wound with mauricio. 1:1 sitter at bedside. NOTED external ZIO monitor on left CW.
[2021-02-03] MEDS: LACTULOSE 20 G/30 ML LIQUID UDC PO SCH ×2 (09:25→20:26)
[2021-02-03] MEDS: CHOLECALCIFEROL 1,000 UNIT TABLET PO SCH (09:25)
[2021-02-03] MEDS: CYANOCOBALAMIN 1,000 MCG TABLET PO SCH (09:25)
[2021-02-03] MEDS: CALCIUM CARBONATE 600 MG TABLET PO SCH (09:25)
[2021-02-03] MEDS: THIAMINE HCL 100 MG TABLET PO SCH (09:25)
[2021-02-03] MEDS: MAGNESIUM OXIDE 400 MG TABLET PO SCH ×2 (09:25→16:01)
[2021-02-03] MEDS: ALLOPURINOL 300 MG TABLET PO SCH (09:26)
[2021-02-03] MEDS: MIDODRINE HCL 5 MG TABLET PO SCH ×2 (09:26→16:01)
[2021-02-03] MEDS: METOPROLOL SUCCINATE XL 25 MG TAB.SR.24H PO SCH (09:27)
--- NOTE | 2021-02-03 11:00 | NUR ---
Refused Physical therapy. Explained to pt purpose of getting her OOB and encouraging her to move around. Pt Continue to refuse.
[2021-02-03 12:20] VITALS: BP 114/45
[2021-02-03] MEDS: HYDROCODONE/APAP 10-325 MG TABLET PO PRN (12:36)
[2021-02-03] MEDS: ENSURE ENLIVE (VAN) 240 ML LIQUID PO SCH (16:01)
[2021-02-03 16:06] VITALS: BP 117/43
--- NOTE | 2021-02-03 18:30 | NUR ---
Pt is in no acute distress. Call light is within reach.
[2021-02-03 19:59] VITALS: BP 127/53
[2021-02-03] MEDS: NITROFURANTOIN/NITROFURAN MAC 100 MG CAPSULE PO SCH (20:25)
[2021-02-03] MEDS ORDERED: diphenhydrAMINE 25 MG CAP PO ONE (23:15)
[2021-02-04] MEDS: MORPHINE SULFATE 4 MG/1 ML DISP.SYRIN IV PRN ×4 (04:28→20:15)
--- NOTE | 2021-02-04 04:30 | NUR ---
Morphine pulled out of pyxis at 0426H. While still in the med room, this nurse was opening the morphine syringe from the plastic. While doing this, the syringe came apart and the morphine spilled out. Because of this, I needed to pull out another syringe of Morphine for the patient. Nurse Kayce Chavez was also in the med room at this time and witnessed this.
--- NOTE | 2021-02-04 05:22 | NUR ---
Pt slept intermittently throughout the night. Sitter at bedside for safety. Denies SOB. Morphine given for pain, tolerated well. IV site intact. Left foot kept elevated. No other issues or concerns at this time. Safety and comfort provided, will endorse to day shift.
[2021-02-04] MEDS: PANTOPRAZOLE SODIUM 40 MG TABLET.DR PO SCH (06:17)
[2021-02-04 07:28] LABS: HEMATOCRIT 25.8 % (31.2-41.9); MEAN CORPUSCULAR HEMOGLOBIN 34.5 uug (24.7-32.8); MEAN CORPUSCULAR VOLUME 103.2 fL (75.5-95.3); PLATELET COUNT (AUTO) 69 K/uL (179-408)
[2021-02-04 07:54] LABS: CREATININE 0.7 mg/dL (0.6-1.3); MAGNESIUM 1.3 mg/dL (1.8-2.4); PHOSPHOROUS 3.7 mg/dL (2.5-4.9); POTASSIUM 4.1 mmol/L (3.5-5.1)
[2021-02-04] MEDS: METOPROLOL SUCCINATE XL 25 MG TAB.SR.24H PO SCH (08:59)
[2021-02-04] MEDS: MIDODRINE HCL 5 MG TABLET PO SCH ×2 (09:00→16:14)
[2021-02-04] MEDS: NITROFURANTOIN/NITROFURAN MAC 100 MG CAPSULE PO SCH (09:00)
[2021-02-04] MEDS: CHOLECALCIFEROL 1,000 UNIT TABLET PO SCH (09:00)
[2021-02-04] MEDS: CALCIUM CARBONATE 600 MG TABLET PO SCH (09:00)
[2021-02-04] MEDS: CYANOCOBALAMIN 1,000 MCG TABLET PO SCH (09:00)
--- NOTE | 2021-02-04 09:00 | NUR ---
patient received laying in bed in no distress, aox2-3, currently with dressing to left lower leg, bruising to surrounding area, patient able to wiggle toes, cap refill <3. sitter at bed side 1:1. v/s wnl, afebrile, side rails up x2, call light within reach.
[2021-02-04] MEDS: MAGNESIUM OXIDE 400 MG TABLET PO SCH ×2 (09:01→16:10)
[2021-02-04] MEDS: LACTULOSE 20 G/30 ML LIQUID UDC PO SCH ×2 (09:01→21:00)
[2021-02-04] MEDS: THIAMINE HCL 100 MG TABLET PO SCH (09:01)
[2021-02-04] MEDS: ALLOPURINOL 300 MG TABLET PO SCH (09:08)
--- NOTE | 2021-02-04 09:34 | NUR ---
Will ask hospitalist for parameter of midodrine.
[2021-02-04] MEDS: MAGNESIUM SULFATE/D5W 100 ML IV SCH ×4 (09:47→14:23)
[2021-02-04] MEDS: ENSURE ENLIVE (VAN) 240 ML LIQUID PO SCH ×2 (10:10→17:20)
[2021-02-04] MEDS ORDERED: ZOLPIDEM 5 MG TABLET PO PRN (11:15)
[2021-02-04 12:00] VITALS: BP 102/42
[2021-02-04 15:02] LABS: EOSINOPHILS % (MANUAL) 6 % (0-8); LYMPHOCYTES % (MANUAL) 18 % (20-40); MONOCYTES % (MANUAL) 15 % (2-10); NEUTROPHILS % (MANUAL) 61 % (42-75)
[2021-02-04 16:02] VITALS: BP 128/49
[2021-02-04] MEDS: ACETAMINOPHEN 325 MG TABLET PO PRN (16:14)
--- NOTE | 2021-02-04 17:03 | NUR ---
incentive inspirometer given to patient, explained procedure, patient returned demonstration. encouraged to do at least 10 breaths 1 to 2 hours while awake.
--- NOTE | 2021-02-04 19:00 | NUR ---
RECD PT IN BED,AWAKE,ALERT AND ORIENTED, WITH SOME PERIODS OF CONFUSION.HANDLED GENTLY,COTINUES TO BE DNR/DNI STATUS, NEEDS ATTENDED TO.ON 1 SITTER FOR SAFETY.NO ACUTE DISTRESS NOTED. Addendum: 02/05/21 at 0229 by RUPINDER SIMS RN Amended: Links added.
[2021-02-04 20:00] VITALS: BP 121/51
[2021-02-05] MEDS: MORPHINE SULFATE 4 MG/1 ML DISP.SYRIN IV PRN ×5 (00:18→20:45)
[2021-02-05] MEDS: NITROFURANTOIN/NITROFURAN MAC 100 MG CAPSULE PO SCH ×2 (00:31→08:45)
[2021-02-05] MEDS: TRAZODONE 50 MG TABLET PO PRN (00:43)
--- NOTE | 2021-02-05 02:36 | NUR ---
CONTINENT OF BOWEL AND BLADDER,AFEBRILE.SLEPT ON AND OFF.
[2021-02-05 04:52] VITALS: BP 131/84
[2021-02-05] MEDS: ACETAMINOPHEN 325 MG TABLET PO PRN ×2 (05:24→20:46)
[2021-02-05 06:35] LABS: HEMATOCRIT 24.3 % (31.2-41.9); MEAN CORPUSCULAR HEMOGLOBIN 34.3 uug (24.7-32.8); MEAN CORPUSCULAR VOLUME 102.1 fL (75.5-95.3); PLATELET COUNT (AUTO) 52 K/uL (179-408)
[2021-02-05 06:44] LABS: CREATININE 0.7 mg/dL (0.6-1.3); PHOSPHOROUS 3.5 mg/dL (2.5-4.9); POTASSIUM 4.1 mmol/L (3.5-5.1)
[2021-02-05 08:00] VITALS: BP 114/45
[2021-02-05] MEDS: ALLOPURINOL 300 MG TABLET PO SCH (08:44)
[2021-02-05] MEDS: LACTULOSE 20 G/30 ML LIQUID UDC PO SCH ×2 (08:44→20:45)
[2021-02-05] MEDS: CHOLECALCIFEROL 1,000 UNIT TABLET PO SCH (08:44)
[2021-02-05] MEDS: THIAMINE HCL 100 MG TABLET PO SCH (08:44)
[2021-02-05] MEDS: CYANOCOBALAMIN 1,000 MCG TABLET PO SCH (08:44)
[2021-02-05] MEDS: CALCIUM CARBONATE 600 MG TABLET PO SCH (08:45)
[2021-02-05] MEDS: MAGNESIUM OXIDE 400 MG TABLET PO SCH ×2 (08:45→16:34)
[2021-02-05] MEDS: PANTOPRAZOLE SODIUM 40 MG TABLET.DR PO SCH (08:47)
[2021-02-05] MEDS: MIDODRINE HCL 5 MG TABLET PO SCH ×2 (08:48→16:34)
[2021-02-05] MEDS: METOPROLOL SUCCINATE XL 25 MG TAB.SR.24H PO SCH (08:48)
[2021-02-05] MEDS: ENSURE ENLIVE (VAN) 240 ML LIQUID PO SCH ×2 (09:00→17:00)
--- NOTE | 2021-02-05 09:00 | NUR ---
patient laying in bed in no apparent distress at this time. patient with c/o pain to left leg, non-pharmacologic intervention ineffective, patient request prn morpine. morphine administered. patient continues with 1:1 sitter at bedside, side rails up x2, call light within reach
[2021-02-05] MEDS: CEFTRIAXONE 1 G in IV DEXTROSE 5% 50 ML IV SCH (10:30)
[2021-02-05 12:00] VITALS: BP 108/47
[2021-02-05] MEDS ORDERED: Z GUARD REMEDY PASTE 57 GM TUBE TOP PRN (13:45)
[2021-02-05 16:00] VITALS: BP 116/42
[2021-02-05 16:32] VITALS: BP 116/42
--- NOTE | 2021-02-05 17:00 | NUR ---
patient refused ensure, explain importance of drinking protein supplements states she doesnt like it. patient ate dinner >75 and tolerated well.
[2021-02-05 17:57] LABS: IRON, SERUM 35 ug/dL (50-175)
[2021-02-05 18:58] LABS: FERRITIN 129 ng/mL (8-252)
--- NOTE | 2021-02-05 19:00 | NUR ---
IN BED ,RESTING, SITTER AT BEDSIDE, ALERT AND ORIENTED X4, NEEDS ATTENDED TO,STILL ON DNR STATUS.VITALS TAKEN AND RECORDED.SOME PERIODS OF CONFUSION NOTED.SOFT CAST ON LEFT ANKLE, CIRC CHECKS DONE , ABLE TO WIGGLE TOES.
[2021-02-05 20:00] VITALS: BP 110/41
[2021-02-06] VITALS: BP 112/52
[2021-02-06 04:01] VITALS: BP 110/56
[2021-02-06] MEDS: MORPHINE SULFATE 4 MG/1 ML DISP.SYRIN IV PRN ×2 (04:48→11:01)
[2021-02-06 06:36] LABS: HEMATOCRIT 24.4 % (31.2-41.9); MEAN CORPUSCULAR HEMOGLOBIN 34.6 uug (24.7-32.8); MEAN CORPUSCULAR VOLUME 102.3 fL (75.5-95.3); PLATELET COUNT (AUTO) 58 K/uL (179-408)
[2021-02-06 06:57] LABS: BILIRUBIN,TOTAL 1.3 mg/dL (0.2-1.0); CREATININE 0.7 mg/dL (0.6-1.3); PHOSPHOROUS 3.9 mg/dL (2.5-4.9); POTASSIUM 4.1 mmol/L (3.5-5.1); TOTAL PROTEIN, SERUM 5.7 g/dL (6.4-8.2)
[2021-02-06] MEDS: PANTOPRAZOLE SODIUM 40 MG TABLET.DR PO SCH (07:28)
[2021-02-06 07:30] VITALS: BP 117/47
[2021-02-06] MEDS: LACTULOSE 20 G/30 ML LIQUID UDC PO SCH (08:12)
[2021-02-06] MEDS: CALCIUM CARBONATE 600 MG TABLET PO SCH (08:12)
[2021-02-06] MEDS: THIAMINE HCL 100 MG TABLET PO SCH (08:13)
[2021-02-06] MEDS: MAGNESIUM OXIDE 400 MG TABLET PO SCH (08:13)
[2021-02-06] MEDS: CHOLECALCIFEROL 1,000 UNIT TABLET PO SCH (08:13)
[2021-02-06] MEDS: METOPROLOL SUCCINATE XL 25 MG TAB.SR.24H PO SCH (08:13)
[2021-02-06] MEDS: MIDODRINE HCL 5 MG TABLET PO SCH (08:13)
[2021-02-06] MEDS: CYANOCOBALAMIN 1,000 MCG TABLET PO SCH (08:13)
[2021-02-06] MEDS: ALLOPURINOL 300 MG TABLET PO SCH (08:13)
[2021-02-06] MEDS: ENSURE ENLIVE (VAN) 240 ML LIQUID PO SCH (08:14)
[2021-02-06] MEDS: CEFTRIAXONE 1 G in IV DEXTROSE 5% 50 ML IV SCH (09:20)
[2021-02-06 11:30] VITALS: BP 102/43
[2021-02-06] MEDS ORDERED: CEFT1VIA15 IV (12:50)
[2021-02-06] MEDS ORDERED: MECL-182 PO (12:50)
[2021-02-06] MEDS ORDERED: FURO-152 PO (12:50)
[2021-02-06] MEDS ORDERED: MENT71OI TOP (12:50)
[2021-02-06] MEDS ORDERED: LORA-258 PO (12:50)
[2021-02-06] MEDS ORDERED: SPIR25TA PO (12:50)
[2021-02-06] MEDS ORDERED: LACT10SO7 PO (12:50)
[2021-02-06] MEDS ORDERED: PANT40TA2 PO (12:50)
[2021-02-06] MEDS ORDERED: Lactose-Free Food PO (12:50)
[2021-02-06] MEDS ORDERED: ALLO100T PO (12:50)
--- NOTE | 2021-02-06 15:15 | NUR ---
Discharged patient to [facility]. AOx3-4. On room air. No signs of acute distress. Patient denies pain/ discomfort. Discharge instructions given and discharge documents signed. Belongings accounted for and signed. ID armband removed. Nursing report given to PAT Lyles of [facility]. Patient left hospital via ambulance gurney.
[2021-02-07 08:06] LABS: *IMMUNOGLOBULIN G, SERUM 1156 mg/dL (586-1602); IMMUNOGLOBULIN A, SERUM 520 mg/dL (64-422); IMMUNOGLOBULIN M, SERUM 123 mg/dL (26-217)
[2021-02-07 11:06] LABS: A/G RATIO 0.9 (0.7-1.7); ALBUMIN 2.7 g/dL (2.9-4.4); ALPHA-1-GLOBULIN 0.2 g/dL (0.0-0.4); ALPHA-2-GLOBULIN 0.4 g/dL (0.4-1.0); GAMMA GLOBULIN 1.3 g/dL (0.4-1.8); GLOBULIN, TOTAL 2.9 g/dL (2.2-3.9); M-SPIKE Not Observed g/dL (Not Observed)
== END 2021-02-06 15:05 | DRG 492 ==
LOC: ER 07:11 → TELE3 09:36 → MEDSURG3 10:18 → TELE3 01-30 13:36 → MEDSURG3 02-01 10:38
PROVIDERS: ADMIT Student in an Organized Health Care Education/Training Program; ATTEND Internal Medicine
PROC: 0QSH04Z Reposition Left Tibia with Internal Fixation Device, Open Approach (ICD-10-PCS; principal; 2021-01-31)
PROC: 0QSK04Z Reposition Left Fibula with Internal Fixation Device, Open Approach (ICD-10-PCS; 2021-01-31)
DX: S82.842A Displaced bimalleolar fracture of left lower leg, initial encounter for closed fracture (principal); E43 Unspecified severe protein-calorie malnutrition; G93.41 Metabolic encephalopathy; N39.0 Urinary tract infection, site not specified; I47.1 Supraventricular tachycardia; D68.69 Other thrombophilia; S01.01XA Laceration without foreign body of scalp, initial encounter; W18.30XA Fall on same level, unspecified, initial encounter; K72.90 Hepatic failure, unspecified without coma; Z20.822 Contact with and (suspected) exposure to COVID-19; Z68.22 Body mass index [BMI] 22.0-22.9, adult; Y93.9 Activity, unspecified; E80.6 Other disorders of bilirubin metabolism; F10.21 Alcohol dependence, in remission; R42 Dizziness and giddiness; K70.30 Alcoholic cirrhosis of liver without ascites; D75.89 Other specified diseases of blood and blood-forming organs; E83.42 Hypomagnesemia; M50.30 Other cervical disc degeneration, unspecified cervical region; Y92.009 Unspecified place in unspecified non-institutional (private) residence as the place of occurrence of the external cause; D69.59 Other secondary thrombocytopenia; K57.90 Diverticulosis of intestine, part unspecified, without perforation or abscess without bleeding
CPT/HCPCS: 36415; 70030-TC; 70450; 71045; 72125; 73610; 82747; 82784; 83550; 83735; 84100; 84155; 84165; 84443; 85014; 85025; 85730; 86334; 86850; 86900; 86901; 86920; 87086; 90715; 93005; 93307; 97161; A4217; A4663; A6209; C1713; C1769; G0378; J0330; J0690; J0696; J2270; J2405; J2765; J3010; J3370; J3475; J3480; J3490; J7040; J7050; J7060; Q0163

== ENCOUNTER 2021-02-12 11:02 | Emergency (ER) | payer MEDICARE, BC ==
[~2021-02-12] VITALS: Ht 170.2 cm; Wt 65.8 kg
[~2021-02-12 11:02] MED LIST changes: +ALEN70TA80 PO; +ALLO100T PO; -ALPHA LIPOIC ACID PO; +ASCO500T10 PO; +CALCIUM CARBONATE PO; +CEFT1VIA15 IV; -COD1CAPS15 PO; +CYAN100T44 PO; -FOLI1TAB94 PO; +FURO-152 PO; -FURO20TA4 PO; -HIGH POTENCY IRON PO; -HYDR-3980 PO; +HYDR-4209 PO; +LACT10SO7 PO; +LORA-258 PO; +Lactose-Free Food PO; +MAGN400C PO; -MAGNESIUM PO; +MECL-182 PO; +MENT71OI TOP; +PANT40TA2 PO; -PRED1TAB PO; -PYRI100T6 PO; +SPIR25TA PO; -SPIR25TA6 PO; -THIA100T13 PO; +TRAZ-182 PO; -[UNRECOGNIZED DRUG - OTHER] PO; +alpha-lipoic acid PO
--- NOTE | 2021-02-12 11:25 | NUR ---
at bedside for MSE.
[2021-02-12 11:41] LABS: CREATININE 0.9 mg/dL (0.6-1.3); POTASSIUM 4.7 mmol/L (3.5-5.1)
[2021-02-12 11:43] LABS: HEMATOCRIT 26.5 % (31.2-41.9); MEAN CORPUSCULAR HEMOGLOBIN 34.2 uug (24.7-32.8); MEAN CORPUSCULAR VOLUME 102.8 fL (75.5-95.3); PLATELET COUNT (AUTO) 73 K/uL (179-408)
[2021-02-12 11:47] LABS: BILIRUBIN,DIRECT 0.4 mg/dL (0.0-0.2); BILIRUBIN,TOTAL 0.9 mg/dL (0.2-1.0); TOTAL PROTEIN, SERUM 6.6 g/dL (6.4-8.2)
--- NOTE | 2021-02-12 13:00 | NUR ---
spoke with , pt has been accepted for m/s admission with dx of intractable pain.
--- NOTE | 2021-02-12 13:04 | NUR ---
in to see pt.
[2021-02-12] MEDS ORDERED: ONDANSETRON 4 MG/2 ML VIAL IV PRN (13:15)
[2021-02-12] MEDS ORDERED: HYDROCODONE/APAP 5-325MG TABLET PO PRN (13:15)
[2021-02-12] MEDS ORDERED: MAGNESIUM HYDROXIDE 30 ML LIQUID UDC PO PRN (13:15)
[2021-02-12] MEDS ORDERED: MORPHINE SULFATE 2 MG/1 ML DISP.SYRIN IV PRN (13:15)
[2021-02-12] MEDS ORDERED: ACETAMINOPHEN 325 MG TABLET PO PRN (13:15)
[2021-02-12] MEDS ORDERED: LORAZEPAM 0.5 MG TABLET PO PRN (13:15)
--- NOTE | 2021-02-12 13:18 | NUR ---
CT canceled by .
--- NOTE | 2021-02-12 13:30 | NUR ---
Cast to LLE and mauricio from scalp removed by .
--- NOTE | 2021-02-12 13:55 | NUR ---
Per pt may be discharged back to her SNF. Called [facility] for transport, ETA 60 mins.
[2021-02-12 14:24] LABS: EOSINOPHILS % (MANUAL) 2 % (0-8); LYMPHOCYTES % (MANUAL) 20 % (20-40); MONOCYTES % (MANUAL) 14 % (2-10); NEUTROPHILS % (MANUAL) 64 % (42-75)
--- NOTE | 2021-02-12 15:14 | NUR ---
Pt d/c back to [facility] via [facility]. ACI given to EMT. Called [facility] to notify them pt is returning to their facility.
== END 2021-02-12 15:16 ==
LOC: ER 11:02
DX: G89.18 Other acute postprocedural pain (principal); M25.572 Pain in left ankle and joints of left foot; D61.818 Other pancytopenia; S82.852D Displaced trimalleolar fracture of left lower leg, subsequent encounter for closed fracture with routine healing; X58.XXXD Exposure to other specified factors, subsequent encounter; K74.60 Unspecified cirrhosis of liver
CPT/HCPCS: 36415; 70030-TC; 73610; 85025; A4663

== ENCOUNTER 2023-07-15 16:04 | Emergency (ER) | payer MEDICARE, BC ==
[~2023-07-15] VITALS: Ht 165.1 cm; Wt 61.2 kg
[~2023-07-15 16:04] MED LIST changes: -MECL-182 PO; +MECL-225 PO
[2023-07-15] MEDS ORDERED: SERT-438 PO (16:19)
[2023-07-15] MEDS ORDERED: METH-806 (16:19)
[2023-07-15] MEDS ORDERED: HYDR2TAB7 PO (16:19)
[2023-07-15] MEDS ORDERED: PREG100C55 PO (16:19)
[2023-07-15] MEDS ORDERED: ALLO300T2 PO (16:19)
[2023-07-15 16:50] LABS: HEMATOCRIT 37.9 % (31.2-41.9)
[2023-07-15] MEDS ORDERED: MORPHINE SULFATE 4 MG/1 ML DISP.SYRIN ONE (16:59)
[2023-07-15] MEDS: MORPHINE SULFATE 4 MG/1 ML DISP.SYRIN IV ONE (17:07)
[2023-07-15 17:24] LABS: BASOPHILS % (AUTO) 0.4 % (0.0-2.0); DIFFERENTIAL COMMENT 0; EOSINOPHILS # (AUTO) 0.1 K/uL (0.0-0.7); EOSINOPHILS % (AUTO) 1.5 % (0.0-7.0); HEMOGLOBIN 12.2 g/dL (10.9-14.3); LYMPHOCYTES # (AUTO) 0.3 K/uL (0.8-4.8); LYMPHOCYTES % (AUTO) 4.4 % (20.5-51.5); MEAN CORPUSCULAR HEMOGLOBIN 31.3 uug (24.7-32.8); MEAN CORPUSCULAR HGB CONC 32 g/dL (32.3-35.6); MEAN CORPUSCULAR VOLUME 97.2 fL (75.5-95.3); MONOCYTES # (AUTO) 0.6 K/uL (0.1-1.30); NEUTROPHILS # (AUTO) 6.8 K/uL (1.8-8.9); NEUTROPHILS % (AUTO) 86.7 % (38.5-71.5); PLATELET COUNT (AUTO) 63 K/uL (179-408); RED CELL DISTRIBUTION WIDTH 19.5 % (12.3-17.7); WHITE BLOOD COUNT (AUTO) 7.9 K/uL (3.8-11.8)
[2023-07-15 17:26] LABS: CALCIUM 9.3 mg/dL (8.5-10.1); CARBON DIOXIDE 26 mmol/L (21-32); CHLORIDE 105 mmol/L (98-107); CREATININE 1.1 mg/dL (0.6-1.3); GLUCOSE 124 mg/dL (74-106); POTASSIUM 4.2 mmol/L (3.5-5.1); SODIUM SERUM 144 mmol/L (136-145); UREA NITROGEN, BLOOD 23 mg/dL (7-18)
[2023-07-15] MEDS ORDERED: HYDROMORPHONE 1 MG/1 ML DISP.SYRIN ONE ×2 (19:30→21:59)
[2023-07-15] MEDS: HYDROMORPHONE 1 MG/1 ML DISP.SYRIN IV ONE (19:34)
[2023-07-15] MEDS: HYDROMORPHONE 1 MG/1 ML DISP.SYRIN IV STA (22:09)
[2023-07-15] MEDS ORDERED: TRAZODONE 50 MG TABLET ONE (22:56)
[2023-07-15] MEDS: TRAZODONE 50 MG TABLET GT SCH (22:57)
[2023-07-16] MEDS ORDERED: HYDROMORPHONE 1 MG/1 ML DISP.SYRIN ONE ×3 (03:05→12:18)
[2023-07-16] MEDS: HYDROMORPHONE 1 MG/1 ML DISP.SYRIN IV STA ×2 (03:10→06:33)
[2023-07-16] MEDS: IV NORMAL SALINE 500 ML IV ONE ×2 (06:05→11:00)
[2023-07-16] MEDS: HYDROMORPHONE 1 MG/1 ML DISP.SYRIN IV ONE (12:10)
[2023-07-16 12:27] VITALS: O2SAT 96
== END 2023-07-16 12:50 | disposition short-term general hospital (02) ==
LOC: ER 16:06 → UNDOADMIN 19:40 → MEDSURG3 19:40 → ER 07-16 12:50
DX: S72.091A Other fracture of head and neck of right femur, initial encounter for closed fracture (principal); M54.2 Cervicalgia; Z98.890 Other specified postprocedural states; Z79.899 Other long term (current) drug therapy; Z20.822 Contact with and (suspected) exposure to COVID-19; W01.0XXA Fall on same level from slipping, tripping and stumbling without subsequent striking against object, initial encounter; Y93.89 Activity, other specified; Y92.89 Other specified places as the place of occurrence of the external cause; Y99.8 Other external cause status
CPT/HCPCS: 99291; 70450; 96374; 96375; 87426; 87081; 80048; 85025; 85610; 36415; 73502; 73560; 72125; 96376 ×3; 71045; J1170 ×5; J2270; J7040; A4606; A4663; G0378

== ENCOUNTER 2024-05-19 23:02 | Inpatient (IN) | payer MEDICARE, BC ==
[~2024-05-19] VITALS: Ht 165.1 cm; Wt 66.7 kg
[2024-05-19] MEDS: IV NORMAL SALINE 1000 ML BAG IV ONE (00:10)
[2024-05-19] MEDS: CEFTRIAXONE 1 G in IV DEXTROSE 5% 50 ML IV ONE (00:15)
[~2024-05-19 23:02] MED LIST changes: +ALLO300T2 PO; +HYDR2TAB7 PO; +METH-806 PO; +PREG100C55 PO; +SERT-438 PO
[2024-05-20] MEDS ORDERED: CEFTRIAXONE /D5W 50ML IVPB **ER PYXIS IV ONE (00:10)
[2024-05-20 00:17] LABS: BASOPHILS % (AUTO) 0.3 % (0.0-2.0); EOSINOPHILS % (AUTO) 0.2 % (0.0-7.0); HEMATOCRIT 38.1 % (31.2-41.9); HEMOGLOBIN 12.7 g/dL (10.9-14.3); LYMPHOCYTES # (AUTO) 0.2 K/uL (0.8-4.8); LYMPHOCYTES % (AUTO) 4.7 % (20.5-51.5); MEAN CORPUSCULAR HEMOGLOBIN 32.6 uug (24.7-32.8); MEAN CORPUSCULAR HGB CONC 33 g/dL (32.3-35.6); MONOCYTES # (AUTO) 0.4 K/uL (0.1-1.30); MONOCYTES % (AUTO) 9.3 % (0.0-11.0); NEUTROPHILS # (AUTO) 3.6 K/uL (1.8-8.9); NEUTROPHILS % (AUTO) 85.5 % (38.5-71.5); RED BLOOD CELL COUNT(AUTO) 3.89 MIL/uL (3.63-4.92); RED CELL DISTRIBUTION WIDTH 16.5 % (12.3-17.7); WHITE BLOOD COUNT (AUTO) 4.3 K/uL (3.8-11.8)
[2024-05-20 00:22] LABS: DIFFERENTIAL COMMENT 1
[2024-05-20 00:23] LABS: PLATELET COUNT (AUTO) 38 K/uL (179-408)
[2024-05-20 00:27] LABS: CALCIUM 8.7 mg/dL (8.5-10.1); CARBON DIOXIDE 27 mmol/L (21-32); CHLORIDE 102 mmol/L (98-107); CREATININE 0.9 mg/dL (0.6-1.3); GLUCOSE 125 mg/dL (74-106); POTASSIUM 4.1 mmol/L (3.5-5.1); SODIUM SERUM 139 mmol/L (136-145); UREA NITROGEN, BLOOD 20 mg/dL (7-18)
[2024-05-20 00:40] LABS: ALANINE AMINOTRANSFERASE 17 U/L (14-59); ALBUMIN 3.7 g/dL (3.4-5.0); ALKALINE PHOSPHATASE 75 U/L (50-136); ASPARTATE AMINOTRANSFERASE 19 U/L (15-37); BILIRUBIN,DIRECT 0.5 mg/dL (0.0-0.2); BILIRUBIN,TOTAL 1.5 mg/dL (0.2-1.0); NT-PRO BNP 344 pg/mL (0-125); TOTAL PROTEIN, SERUM 7.5 g/dL (6.4-8.2)
[2024-05-20 01:42] LABS: ANISOCYTOSIS 1+; GIANT PLATELETS 1; LYMPHOCYTES % (MANUAL) 7 % (20-40); MONOCYTES % (MANUAL) 8 % (2-10); NEUTROPHILS % (MANUAL) 85 % (42-75); PLATELET ESTIMATE DECREASED; STOMATOCYTES 1+
[2024-05-20] MEDS ORDERED: FURO20TA4 PO (02:27)
[2024-05-20 03:09] LABS: *BILIRUBIN,URIN NEGATIVE (NEGATIVE); *BLOOD, URINE 2+ (NEGATIVE); *COLOR,URINE YELLOW (YELLOW); *KETONES,URINE NEGATIVE (NEGATIVE); *PROTEIN,URINE 2+ (NEGATIVE); *UROBILINOGEN,URINE 0.2 E.U./dl (NORMAL); LEUKOCYTE ESTERASE ,URINE TRACE (NEGATIVE); NITRITE, URINE POSITIVE (NEGATIVE); PH,URINE 5.5 (5.0-8.0); UGLUCOSE NEGATIVE (NEGATIVE)
[2024-05-20 03:12] LABS: *CLARITY,URINE SLIGHTLY CLOUDY (CLEAR)
[2024-05-20 03:36] LABS: BACTERIA,URINE FEW /HPF (NONE SEEN); SQUAMOUS EPITHELIAL CELL,UR FEW /HPF (NONE SEEN); WBC,URINE 20-50 /HPF (0-3)
[2024-05-20] MEDS ORDERED: MAGNESIUM HYDROXIDE 30 ML LIQUID UDC PO PRN (04:00)
[2024-05-20] MEDS ORDERED: REMEDY ESSENTIAL ZINC PASTE 113 GM TP PRN (04:00)
[2024-05-20] MEDS ORDERED: ONDANSETRON 4 MG/2 ML VIAL IV PRN (04:00)
[2024-05-20] MEDS ORDERED: TRAZODONE 50 MG TABLET PO PRN (04:00)
[2024-05-20] MEDS ORDERED: MECLIZINE HCL 12.5 MG TABLET PO PRN (04:00)
[2024-05-20] MEDS ORDERED: HYDROMORPHONE 2 MG/1 ML DISP.SYRIN ONE (05:55)
[2024-05-20] MEDS: HYDROMORPHONE 2 MG/1 ML DISP.SYRIN IV STA (06:00)
[2024-05-20] MEDS: PREGABALIN 100 MG CAPSULE PO SCH ×2 (06:00→16:11)
[2024-05-20 06:39] VITALS: BP 99/49; TEMP 97; O2SAT 100
[2024-05-20] MEDS: PANTOPRAZOLE SODIUM 40 MG VIAL IV SCH (08:34)
[2024-05-20] MEDS: SERTRALINE HCL 50 MG TABLET PO SCH (08:35)
[2024-05-20] MEDS: CHOLECALCIFEROL 1,000 UNIT TABLET PO SCH (08:36)
[2024-05-20] MEDS: FUROSEMIDE 20 MG TABLET PO SCH (08:36)
[2024-05-20] MEDS: CYANOCOBALAMIN 1,000 MCG TABLET PO SCH (08:37)
[2024-05-20] MEDS: ASCORBIC ACID 500 MG TABLET PO SCH ×2 (08:37→16:10)
[2024-05-20] MEDS: SPIRONOLACTONE 25 MG TABLET PO SCH (08:37)
[2024-05-20] MEDS: MAGNESIUM OXIDE 400 MG TABLET PO SCH (08:37)
[2024-05-20] MEDS: ALLOPURINOL 100 MG TABLET PO SCH (08:38)
[2024-05-20] MEDS: LACTULOSE 20 G/30 ML LIQUID UDC PO SCH (08:38)
[2024-05-20 11:13] VITALS: BP 120/51; TEMP 98.4; O2SAT 94
[2024-05-20] MEDS: ACETAMINOPHEN 325 MG TABLET PO PRN (13:29)
[2024-05-20] MEDS: HYDROMORPHONE HCL 2 MG TABLET PO PRN (13:37)
[2024-05-20] MEDS ORDERED: FOLI1TAB94 PO (14:42)
[2024-05-20] MEDS ORDERED: FERR324T17 PO (14:42)
[2024-05-20] MEDS ORDERED: METO-356 PO (14:56)
[2024-05-20] MEDS ORDERED: ATOR10TA PO (14:56)
[2024-05-20 15:26] VITALS: BP 107/56; TEMP 98.2; O2SAT 97
[2024-05-20] MEDS: FERROUS GLUCONATE 324 MG TABLET PO SCH (16:11)
[2024-05-20] MEDS: IV NS 1000 ML 1,000 ML IV PRN (18:51)
[2024-05-20 19:30] VITALS: BP 100/46; TEMP 97.7; O2SAT 95
[2024-05-20] MEDS: ATORVASTATIN 10 MG TABLET PO SCH (21:01)
[2024-05-20] MEDS: CEFTRIAXONE 1 G in IV DEXTROSE 5% 50 ML IV SCH (21:26)
[2024-05-21 06:00] VITALS: BP 116/61; TEMP 99; O2SAT 95
[2024-05-21 07:33] LABS: BASOPHILS % (AUTO) 0.8 % (0.0-2.0); CALCIUM 7.8 mg/dL (8.5-10.1); CARBON DIOXIDE 28 mmol/L (21-32); CHLORIDE 106 mmol/L (98-107); CREATININE 0.8 mg/dL (0.6-1.3); DIFFERENTIAL COMMENT 0; GLUCOSE 97 mg/dL (74-106); HEMATOCRIT 33.2 % (31.2-41.9); HEMOGLOBIN 11.3 g/dL (10.9-14.3); LYMPHOCYTES # (AUTO) 0.2 K/uL (0.8-4.8); MEAN CORPUSCULAR HEMOGLOBIN 33.4 uug (24.7-32.8); MEAN CORPUSCULAR HGB CONC 34 g/dL (32.3-35.6); MEAN CORPUSCULAR VOLUME 98.3 fL (75.5-95.3); MONOCYTES # (AUTO) 0.2 K/uL (0.1-1.30); NEUTROPHILS # (AUTO) 1.2 K/uL (1.8-8.9); NEUTROPHILS % (AUTO) 73.2 % (38.5-71.5); POTASSIUM 4.2 mmol/L (3.5-5.1); RED BLOOD CELL COUNT(AUTO) 3.38 MIL/uL (3.63-4.92); RED CELL DISTRIBUTION WIDTH 16.7 % (12.3-17.7); SODIUM SERUM 139 mmol/L (136-145); UREA NITROGEN, BLOOD 15 mg/dL (7-18)
[2024-05-21 07:39] LABS: WHITE BLOOD COUNT (AUTO) 1.6 K/uL (3.8-11.8)
[2024-05-21 07:40] LABS: PLATELET COUNT (AUTO) 28 K/uL (179-408)
[2024-05-21 08:00] VITALS: BP 110/52; TEMP 98.5; O2SAT 92
[2024-05-21] MEDS: METOPROLOL SUCCINATE XL 25 MG TAB.SR.24H PO SCH (08:36)
[2024-05-21] MEDS: FOLIC ACID 1 MG TABLET PO SCH (08:36)
[2024-05-21] MEDS: ALLOPURINOL 100 MG TABLET PO SCH (08:37)
[2024-05-21] MEDS ORDERED: ACID1TAB4 PO (08:59)
[2024-05-21] MEDS ORDERED: CEPH500T PO (08:59)
[2024-05-21] MEDS: CEFTRIAXONE 1 G in IV DEXTROSE 5% 50 ML IV ONE (09:51)
[2024-05-21 10:58] VITALS: BP 121/53; TEMP 98.8; O2SAT 94
[2024-05-21 10:58] LABS: EOSINOPHILS % (MANUAL) 1 % (0-8); LYMPHOCYTES % (MANUAL) 14 % (20-40); MONOCYTES % (MANUAL) 13 % (2-10); NEUTROPHILS % (MANUAL) 71 % (42-75); PLATELET ESTIMATE MARKED DECREASED
[2024-05-24] MEDS ORDERED: ALENDRONATE SODIUM 70 MG TABLET PO SCH (07:00)
== END 2024-05-21 12:30 | disposition home or self-care (01) | DRG 690 ==
LOC: ER 23:02 → MEDSURG3 05-20 03:40
PROVIDERS: ATTEND Nurse Practitioner Acute Care
DX: N39.0 Urinary tract infection, site not specified (principal); K70.30 Alcoholic cirrhosis of liver without ascites; D69.6 Thrombocytopenia, unspecified; B96.89 Other specified bacterial agents as the cause of diseases classified elsewhere; Z91.81 History of falling; K21.9 Gastro-esophageal reflux disease without esophagitis; Z87.440 Personal history of urinary (tract) infections; Z79.899 Other long term (current) drug therapy; G89.4 Chronic pain syndrome; Z86.79 Personal history of other diseases of the circulatory system; M50.30 Other cervical disc degeneration, unspecified cervical region; M48.02 Spinal stenosis, cervical region; E86.0 Dehydration; E78.5 Hyperlipidemia, unspecified; I11.0 Hypertensive heart disease with heart failure; F10.21 Alcohol dependence, in remission
CPT/HCPCS: 36415; 70030-TC; 71045; 83605; 84484; 85025; 85730; 87040; A4606; A4663; A6213; G0378; J0696; J1171; J2470; J7040; J8499